=== PATIENT | female | born 1965 | race Caucasian/White ===

== ENCOUNTER → 2018-06-06 14:36 | Outpatient (CLI) | payer SELFPAY ==
[2018-06-06 15:08] LABS: Add Manual Diff / Slide Review NO; Eosinophils Percent Auto 0.5 % (2-4); Hematocrit 38.8 % (36-46); Lymphocytes Percent Auto 18.3 % (25-40); Mean Corpuscular HGB Conc 33.5 % (30-36); Mean Corpuscular Hemoglobin 28.3 PG (26-34); Mean Corpuscular Volume 84.5 fL (80-100); Monocytes Percent Auto 6.1 % (3-14); Neutrophils Absolute Auto 6800 /uL (3000-5900); Neutrophils Percent Auto 74.1 % (50-75); Platelet Count 452 X10^3/uL (150-400); Red Blood Cell Count 4.59 X10^6/uL (4.0-5.2); Red Cell Distribution Width 16.5 % (11.6-14.8); White Blood Cell Count 9.2 X10^3/uL (4.5-11.0)
[2018-06-06 15:21] LABS: Alanine Aminotransferase 46 IU/L (9-52); Albumin 4.8 g/dL (3.5-5.0); Albumin Globulin Ratio 1.3 (1.0-2.8); Alkaline Phosphatase 88 U/L (38-126); Aspartate Aminotransferase 45 IU/L (14-36); BUN Creatinine Ratio 22.9 (6-22); Bilirubin Total 0.9 mg/dL (0.2-1.3); Blood Urea Nitrogen 16 mg/dL (7-17); Calcium 9.9 mg/dL (8.4-10.2); Carbon Dioxide 27 mmol/L (22-32); Chloride 102 mmol/L (98-107); Cholesterol 241 mg/dL (140-199); Estimated Glomerular Filt Rate > 60.0 mL/min (>60); Globulin 3.6 g/dL (1.7-4.1); Glucose 96 mg/dL (70-100); HDL Cholesterol 67 mg/dL (40-60); HEMOLYSIS < 15 (0-50); LDL Cholesterol Calculated 157 mg/dL (<100); Potassium 4.4 mmol/L (3.4-5.1); Sodium 143 mmol/L (137-145); Total Protein 8.4 g/dL (6.3-8.2); Triglycerides 83 mg/dL (35-150)
[2018-06-06 15:57] LABS: TSH w/ Reflex to FT4 1.12 uIU/mL (0.47-4.68)
== END ==
PROVIDERS: Family Provider Family Medicine; PCP Family Medicine; Visit Provider Family Medicine
DX: Z00.00 Encounter for general adult medical examination without abnormal findings (principal)
CPT/HCPCS: 36415; 80053; 80061; 84443; 85025

== ENCOUNTER → 2018-11-07 12:50 | Outpatient (CLI) | payer OTHER, MEDICAID, SELFPAY | PROVIDERS: Family Provider Family Medicine; PCP Family Medicine; Visit Provider Physician Assistant | DX: L02.91 Cutaneous abscess, unspecified (principal) | CPT/HCPCS: 87070; 87077; 87147; 87186; 87205 ==

== ENCOUNTER → 2019-09-06 18:07 | Outpatient (CLI) | payer OTHER, MEDICAID, SELFPAY ==
--- NOTE | 2019-09-06 18:10 | DI.RAD.S_ITS ---
PROCEDURE: XR FOOT RT MIN 3V INDICATIONS: R foot injury TECHNIQUE: 3 views of the foot were acquired. COMPARISON: None. FINDINGS: Bones: No fractures or dislocations. No suspicious bony lesions. Degenerative changes are seen, which are most prominent involving the 1st ray. A plantar calcaneal spur is seen. Incidental note is made of an accessory ossicle, an os peroneum. Soft tissues: No tibiotalar joint effusion. Achilles tendon appears normal. IMPRESSION: No displaced fractures are seen on these plain films. If there is focal tenderness, or other clinical concern for a fracture not seen on these images in this patient with a given history of trauma, please consider a dedicated CT or a short-term followup plain film series (in 1-2 weeks) for further evaluation. Dictated by: Arya Mohan M.D. on 09/06/2019 at 18:24 Approved by: Arya Mohan M.D. on 09/06/2019 at 18:25
== END ==
PROVIDERS: Family Provider Family Medicine; PCP Family Medicine; Referring Provider Physician Assistant; Visit Provider Physician Assistant
DX: S99.921A Unspecified injury of right foot, initial encounter (principal); M77.31 Calcaneal spur, right foot; X58.XXXA Exposure to other specified factors, initial encounter
CPT/HCPCS: 73630

== ENCOUNTER 2019-12-04 14:19 | Emergency (ER) | payer OTHER, MEDICAID, SELFPAY ==
[2019-12-04 14:36] VITALS: BP 185/97; PULSE 96; RESP 15; TEMP 36.8; O2SAT 98; BMI 35.5
--- NOTE | 2019-12-04 14:41 | ED.SKABFB ---
HPI - Skin/Abscess/Foreign Bdy General Chief complaint: Skin/Abscess/Foreign Body Stated complaint: Wants a be tested for MRSA and breast cancer Time Seen by Provider: 12/04/19 14:33 Source: patient Mode of arrival: Ambulatory Limitations: no limitations History of Present Illness HPI narrative: 54-year-old Twila menopausal woman with menorrhagia, presents with abscess on the right inner buttock getting worse over the course of the day. Also noted some redness and superficial change to the left breast today that concerned her and she would like re-evaluated. She denies fevers, cough, chills. She states she has had previous abscesses in the perineal area. She attributes that to heavy bleeding. She currently is menstruating and notes that over the last months to years her menses have gone from a couple of days to a couple of weeks with significant heavy bleeding. She has been evaluated by her primary care physician and apparently hysterectomy, ablation, hormones, IUD have all been found to be not appropriate for her. She states that she has been dealing with this for 10 years. Related Data Home Medications Medication Instructions Recorded Confirmed aspirin [Racheal Advanced] 500 mg PO TID #0 04/10/17 10/14/19 hawthorn tincture PO 11/07/18 10/14/19 Previous Rx's Medication Instructions Recorded chlorthalidone 25 mg tablet 25 mg PO DAILY #90 tab 10/14/19 mupirocin 2 % topical ointment 1 applic TOP BID #60 gram 10/14/19 sulfamethoxazole-trimethoprim 1 tab PO BID #14 tab 12/04/19 Allergies Allergy/AdvReac Type Severity Reaction Status Date / Time latex [LATEX] Allergy Mild BREAKOUT.SKIN Verified 12/04/19 14:36 PEELING lisinopril Allergy Mild cough Verified 12/04/19 14:36 Penicillins [PENICILLINS] Allergy Mild RASH Verified 12/04/19 14:36 PAPER TAPE Allergy Unknown Uncoded 10/14/19 11:21 SILK TAPE Allergy Unknown Uncoded 10/14/19 11:21 night shade vegitables Allergy get sick Uncoded 10/14/19 11:21 Review of Systems Review of Systems Narrative: Pertinent positive and negative findings as per HPI Remainder of review of systems is otherwise unremarkable for Constitutional: Fevers, chills, weakness ENT: No sore throat, neck pain, ear pain CV: Chest pain, palpitations, dyspnea on exertion Respiratory: Cough, wheeze, dyspnea GI: Nausea, vomiting, diarrhea, change in bowel habits, black or bloody stools : Dysuria, hematuria, flank pain MS: Muscle weakness, numbness, joint swelling or warmth Neuro: Syncope, dizziness, tingling Psych: Depression, anxiety, suicidal ideation Endocrine: Fatigue, heat or cold intolerance, very dry skin Heme: Easy bruising or bleeding Allergy: Seasonal rhinorrhea, itchy eyes Patient History Social History marital status: Smoking Status: Former smoker alcohol intake: current substance use type: does not use Smoking Status: Former smoker alcohol intake frequency: holidays/special occasions only Substance Use Type: does not use Exam Narrative Exam Narrative: General: Healthy appearing, in no acute distress. Able to give a complete and coherent history. Well-nourished well-developed HEENT: Moist mucous membranes, normal sclera with reactive pupils, Neck: supple Respiratory: Lungs are clear to auscultation, no wheezing no rales no rhonchi. Full and symmetrical air movement Breasts: Both breasts with normal skin texture and color, normal areola and nipple without discharge. No masses or abnormalities. Cardiac: Regular rate and rhythm no murmurs no bruits Abdomen: Soft nontender good bowel tones, no flank pain Skin: Warm and dry, she has a 2 x 2 cm abscess with approximate least 3 cm of surrounding cellulitis and induration on the left inner buttock cheek. Appears to be Twila follicular. Neurologic: Grossly neurologically intact with no obvious asymmetries or abnormalities Extremities: No trauma, well perfused Psych: Cooperative, appropriate insight and affect Initial Vital Signs Initial Vital Signs: Vital Signs Temperature 98.3 F 12/04/19 14:36 Pulse Rate 96 H 12/04/19 14:36 Respiratory Rate 15 12/04/19 14:36 Blood Pressure 185/97 H 12/04/19 14:36 Pulse Oximetry 98 12/04/19 14:36 Procedures Abscess I/D I&D #1: Site: other (left inner buttock ) Side (if applicable): left Local Anesthetic: lidocaine 1% Amount of anesthesia used (mL): 5 Technique: incised with #11 blade Amount of fluid expressed (mL): 5 Irrigation: No Packing used?: iodoform Course Orders Ordered: ED Orders 12/04/19 15:38 Wound Culture and Gram Stain Stat Discontinued Medications Lidocaine/Sodium Bicarbonate (Buffered Lidocaine 10 Ml Syr) 10 ml INJ NOW ONE Stop: 12/04/19 14:45 Last Admin: 12/04/19 15:06 Dose: 10 ml Documented by: JUDY Vital Signs Vital signs: Vital Signs - 8 hr 12/04/19 14:36 Temperature 98.3 F Pulse Rate 96 H Respiratory Rate 15 Blood Pressure 185/97 H Pulse Oximetry 98 MDM - Skin/Abscess/Foreign Bdy Medical Records Attestation: I reviewed the patient's medical records. MDM Narrative Medical decision making narrative: Developing abscess with cellulitis left inner buttock cheek, not perirectal. Simple I&D with approximately 5 cc of purulence material still some surrounding induration consistent with a cellulitis. She will be placed on Septra for to 7 days. She was concerned about her left breast. On clinical exam I cannot find any superficial abnormalities or deep breast lumps but did encourage her to follow-up with routine mammogram She is safe for home discharge at this time will follow-up with her primary care physician of additional problems return Discharge Plan Departure Patient Disposition: Home Clinical Impression: Abscess Cellulitis Qualifiers: Site of cellulitis: buttock Qualified Code(s): L03.317 - Cellulitis of buttock Instructions: DI for Cellulitis -- Adult, DI for Skin Abscess Activity Restrictions/Additional Instructions: Thank you for coming in today. You do have a small abscess with surrounding infection(cellulitis) to the inner portion of the left buttock. It was drained today and there is a small bit of packing left in place to keep the wound open for a day or 2 to allow continued drainage. Because there was some surrounding cellulitis I am going to suggest 7 days of Bactrim. This has been electronically transmitted to [place]([facility] pharmacy You are concerned about your left breast. On clinical exam I did not find any areas of specific concern. I would encourage you to follow-up with your routine mammogram. Please follow-up with Dr. Mullins. If you feel like the abscess/cellulitis is not improving feel free to return to the emergency department. I hope that you feel better soon Prescriptions: New sulfamethoxazole-trimethoprim 800-160 mg tablet 1 tab PO BID Qty: 14 RF: 0 No Action hawthorn tincture PO RF: 0 mupirocin 2 % ointment 1 applic TOP BID Qty: 60 RF: 1 chlorthalidone 25 mg tablet 25 mg PO DAILY Qty: 90 RF: 1 aspirin [Racheal Advanced] 500 MG tablet 500 mg PO TID Qty: 0 RF: 0 Referrals: Oracio Mullins MD [Primary Care Provider] -
[2019-12-04] MEDS: LIDO 1%/SOD BICARB 8.4% (10ML) 10 ML SYRINGE INJ (15:06)
[2019-12-04 15:58] VITALS: PULSE 94; RESP 16; O2SAT 99
== END 2019-12-04 15:59 | disposition home or self-care (01) ==
PROVIDERS: Emergency Provider Emergency Medicine; Family Provider Family Medicine; PCP Family Medicine
DX: L02.31 Cutaneous abscess of buttock (principal); L03.317 Cellulitis of buttock
CPT/HCPCS: 10060; 87070; 87075; 87077; 87186; 87205; 99283

== ENCOUNTER 2020-10-06 10:04 | Emergency (ER) | payer OTHER, MEDICAID, SELFPAY ==
[2020-10-06 10:08] VITALS: BP 231/92; PULSE 69; RESP 16; TEMP 36.8; O2SAT 99; BMI 34.9
[2020-10-06 10:11] VITALS: PULSE 72; O2SAT 99
--- NOTE | 2020-10-06 10:21 | DI.RAD.S_ITS ---
PROCEDURE: XR CHEST 1V INDICATIONS: HTN, weakness TECHNIQUE: One view of the chest was acquired. COMPARISON: None. FINDINGS: Surgical changes and devices: None. Lungs and pleura: Lungs are clear. No pleural effusions or pneumothorax. Mediastinum: Mediastinal contours appear normal. Heart size is normal. Bones and chest wall: No suspicious bony lesions. Overlying soft tissues appear unremarkable. IMPRESSION: No acute process. Dictated by: Anna Page M.D. on 10/06/2020 at 10:55 Approved by: Anna Page M.D. on 10/06/2020 at 10:55
--- NOTE | 2020-10-06 10:22 | ED.GENADULT ---
HPI - General Adult General Chief complaint: Hypertension Stated complaint: High Blood pressure, Heavy periods Time Seen by Provider: 10/06/20 10:05 Source: patient Mode of arrival: Wheelchair Limitations: no limitations History of Present Illness HPI narrative: 55F former smoker with history of chronic full body pain and hypertension presents with multiple complaints. She was seen at the walk-in clinic and had mentioned to them that she has had increasingly heavy menstrual cycles for the past few months. She states that her cycles are now upwards of 2 weeks per episode and she usually has a few days of very heavy bleeding. She is no longer bleeding significantly but this is of concern to her. She is not dizzy nor weak or lightheaded. She states that she has been diagnosed with hypertension for quite some time but has had difficulty finding medications that she can tolerate. She has not taken her hydrochlorothiazide in many months and initial blood pressure is well over 200. She complains of a generalized squeezing-type headache without obvious provocation or palliation. She has no neck pain, no confusion, no blurred vision, trouble speech or focal neurologic problems. She has had no fever chills and has any chest pain or shortness of breath. Onset (ago): month(s) Location: head Radiation: non-radiation Severity: moderate Quality: aching Exacerbating factors: none Treatments prior to arrival: none Related Data Home Medications Medication Instructions Recorded Confirmed aspirin [Racheal Advanced] 500 mg PO TID #0 04/10/17 08/07/20 hawthorn tincture PO 11/07/18 08/07/20 Previous Rx's Medication Instructions Recorded sulfamethoxazole 800 1 tab PO BID #14 tab 08/01/20 mg-trimethoprim 160 mg tablet hydrochlorothiazide 25 mg tablet 25 mg PO DAILY #90 tab 08/07/20 mupirocin 2 % topical ointment 1 applic TOP BID #45 g 08/07/20 Allergies Allergy/AdvReac Type Severity Reaction Status Date / Time latex [LATEX] Allergy Mild BREAKOUT.SKIN Verified 10/06/20 10:20 PEELING lisinopril Allergy Mild cough Verified 10/06/20 10:20 Penicillins [PENICILLINS] Allergy Mild RASH Verified 10/06/20 10:20 PAPER TAPE Allergy Unknown Uncoded 10/06/20 10:20 SILK TAPE Allergy Unknown Uncoded 10/06/20 10:20 night shade vegitables Allergy get sick Uncoded 10/06/20 10:20 Review of Systems Constitutional Constitutional: Denies chills, Denies fatigue, Denies fever(s), Denies frequent falls, Reports headache(s), Denies lethargy and Denies weakness Eyes Eyes: Denies change in vision, Denies eye discharge, Denies irritation and Denies loss of vision ENT Ears, Nose, Mouth, and Throat: Denies change in voice, Denies dizziness, Reports headache(s), Denies neck pain, Denies sore throat and Denies throat swelling Cardiovascular Cardiovascular: Denies chest pain, Denies irregular heart rhythm, Denies lightheadedness, Denies palpitations, Denies dyspnea, Denies dyspnea on exertion and Denies orthopnea Respiratory Respiratory: Denies cough, Denies dyspnea, Denies dyspnea on exertion and Denies wheezing Gastrointestinal Gastrointestinal: Denies abdominal pain, Denies change in bowel habits, Denies diarrhea, Denies nausea and Denies vomiting Genitourinary Genitourinary: Reports menorrhagia Musculoskeletal Musculoskeletal: Denies neck pain and Denies numbness Integumentary/Breasts Skin/Breast: Denies pruritus, Denies erythema, Denies rash and Denies wounds Neurologic Neurologic: Denies behavioral changes, Denies confusion, Denies dizziness, Denies frequent falls, Reports headache(s), Denies loss of vision, Denies numbness and Denies weakness Psychiatric Psychiatric: Denies anxiety, Denies behavioral changes, Denies confusion, Denies depression, Denies homicidal ideation and Denies suicidal ideation Endocrine Endocrine: Denies fatigue, Denies flushing and Denies palpitations Hematologic/Lymphatic Hematologic/Lymphatic: Denies easy bruising Allergic/Immunologic Allergic/Immunologic: Denies urticaria, Denies throat swelling and Denies wheezing Patient History Medical History Anxiety Cutaneous abscess of buttock Fatigue HTN (hypertension) Twila-menopausal Surgical History History of nephrectomy Status post dilation and curettage Status post loop electrosurgical excision procedure (LEEP) of cervix Family History Father No problems noted. Mother No problems noted. Social History marital status: Smoking Status: Former smoker alcohol intake: current substance use type: does not use Smoking Status: Former smoker alcohol intake frequency: holidays/special occasions only Substance Use Type: does not use Exam Narrative Exam Narrative: GENERAL: [55] year old patient appears stated age. Well-nourished, well-developed patient, in mild distress. Anxious HEAD: Atraumatic. Normocephalic. EYES: Pupils equal round and reactive. Extraocular motions intact. No scleral icterus. No injection or drainage. ENT: Nose without bleeding, purulent drainage. Throat without erythema, tonsillar hypertrophy or exudate. Airway patent. NECK: Trachea midline. Non tender CARDIOVASCULAR: Regular rate and rhythm without murmurs, gallops, or rubs. RESPIRATORY: Clear to auscultation. Breath sounds equal bilaterally. No wheezes, rales, or rhonchi. GASTROINTESTINAL: Abdomen soft, non-tender, nondistended. EXTREMITIES: No edema or joint tenderness. BACK: Nontender without deformity or crepitance. No flank tenderness. NEURO: AOx3. SKIN: No rash or erythema of visible areas Initial Vital Signs Initial Vital Signs: Vital Signs Temperature 98.3 F 10/06/20 10:08 Pulse Rate 69 10/06/20 10:08 Respiratory Rate 16 10/06/20 10:08 Blood Pressure 231/92 H 10/06/20 10:08 Pulse Oximetry 99 10/06/20 10:08 Course Course Course Narrative: Patient's blood pressure improved tremendously over the course of her visit. Along with her improved blood pressure her headache has resolved. She has no signs of hypertensive emergency and remainder of labs and exam is very reassuring. She has minimal ongoing bleeding and ultrasound shows no significant findings. I have discussed this with her primary care provider and he will see her in the office later this week to discuss ongoing evaluation and treatment. Orders Ordered: ED Orders 10/06/20 10:16 Complete Blood Count AUTO DIFF Stat Comprehensive Metabolic Panel Stat Magnesium Stat NT-proBNP (BNP-Adult 18+) Stat Prothrombin Time INR Stat Troponin & CK Cardiac Panel Stat 10/06/20 10:21 XR chest 1V Stat EKG-12 Lead Stat 10/06/20 11:07 US pelvic complete Stat Vital Signs Vital signs: Vital Signs - 8 hr 10/06/20 11:00 10/06/20 12:49 Pulse Rate 70 71 Respiratory Rate 15 18 Blood Pressure 189/86 H 177/89 H Pulse Oximetry 99 99 Medical Decision Making Lab Data Result diagrams: 10/06/20 10:16 10/06/20 10:16 Labs: Lab Results 10/06/20 10/06/20 10/06/20 Range/Units 10:16 10:16 10:16 WBC 8.4 (4.5-11.0) X10^3/uL RBC 4.28 (4.0-5.2) X10^6/uL Hgb 11.6 L (12.0-16.0) g/dL Hct 35.6 L (36-46) % MCV 83.2 (80-100) fL MCH 27.0 (26-34) PG MCHC 32.5 (30-36) % RDW 16.6 H (11.6-14.8) % Plt Count 439 H (150-400) X10^3/uL Neut % (Auto) 71.2 (50-75) % Lymph % (Auto) 18.9 L (25-40) % [place] % (Auto) 7.6 (3-14) % Eos % (Auto) 0.9 L (2-4) % Baso % (Auto) 1.4 (0-2) % Neut # (Auto) 6000 (7284-2963) /uL Lymph # (Auto) 1600 (4956-2162) /uL [place] # (Auto) 600 (0-900) /uL Eos # (Auto) 100 (0-450) /uL Baso # (Auto) 100 (0-100) /uL PT 12.7 (10.1-12.7) SECONDS INR 1.1 (0.9-1.3) Sodium 136 L (137-145) mmol/L Potassium 3.9 (3.4-5.1) mmol/L Chloride 105 (98-107) mmol/L Carbon Dioxide 29 (22-32) mmol/L BUN 10 (7-17) mg/dL Creatinine 0.68 (0.52-1.04) mg/dL Estimated GFR > 60.0 (>60) mL/min BUN/Creatinine Ratio 14.7 (6-22) Glucose 94 (70-100) mg/dL Calcium 9.4 (8.4-10.2) mg/dL Magnesium (1.6-2.3) mg/dL Total Bilirubin 0.6 (0.2-1.3) mg/dL AST 29 (14-36) IU/L ALT 21 (<35) IU/L Alkaline Phosphatase 68 (38-126) U/L Total Creatine Kinase (30-135) U/L CK-MB (CK-2) CK-MB (CK-2) Rel Index Troponin I (0.01-0.034) ng/mL NT-Pro-B Natriuret Pep (<125) pg/mL Total Protein 7.3 (6.3-8.2) g/dL Albumin 4.3 (3.5-5.0) g/dL Globulin 3.0 (1.7-4.1) g/dL Albumin/Globulin Ratio 1.4 (1.0-2.8) 10/06/20 Range/Units 10:16 WBC (4.5-11.0) X10^3/uL RBC (4.0-5.2) X10^6/uL Hgb (12.0-16.0) g/dL Hct (36-46) % MCV (80-100) fL MCH (26-34) PG MCHC (30-36) % RDW (11.6-14.8) % Plt Count (150-400) X10^3/uL Neut % (Auto) (50-75) % Lymph % (Auto) (25-40) % [place] % (Auto) (3-14) % Eos % (Auto) (2-4) % Baso % (Auto) (0-2) % Neut # (Auto) (1666-0853) /uL Lymph # (Auto) (2019-8494) /uL [place] # (Auto) (0-900) /uL Eos # (Auto) (0-450) /uL Baso # (Auto) (0-100) /uL PT (10.1-12.7) SECONDS INR (0.9-1.3) Sodium (137-145) mmol/L Potassium (3.4-5.1) mmol/L Chloride (98-107) mmol/L Carbon Dioxide (22-32) mmol/L BUN (7-17) mg/dL Creatinine (0.52-1.04) mg/dL Estimated GFR (>60) mL/min BUN/Creatinine Ratio (6-22) Glucose (70-100) mg/dL Calcium (8.4-10.2) mg/dL Magnesium 2.1 (1.6-2.3) mg/dL Total Bilirubin (0.2-1.3) mg/dL AST (14-36) IU/L ALT (<35) IU/L Alkaline Phosphatase (38-126) U/L Total Creatine Kinase 74 (30-135) U/L CK-MB (CK-2) TNP CK-MB (CK-2) Rel Index TNP Troponin I < 0.012 (0.01-0.034) ng/mL NT-Pro-B Natriuret Pep 154 H (<125) pg/mL Total Protein (6.3-8.2) g/dL Albumin (3.5-5.0) g/dL Globulin (1.7-4.1) g/dL Albumin/Globulin Ratio (1.0-2.8) Imaging Data US - CHIEF TECHNICAL OFFICER: Radiologist's Impression: [address] [id number] ReportSigned Patient: Daksha Verduzco LMR#: [id number]: 1965Acct:[id number]/Sex: 55 / FDate of Service: 10/06/20Loc: EDAccession Number: [id number] Procedure: US pelvic complete Ordering Provider: Quentin Licea D.O. PROCEDURE: US PELVIC COMPLETE INDICATIONS: HEAVY VAGINAL BLEEDING TECHNIQUE: Real-time scanning was performed of the pelvic organs, with image documentation. Additional endovaginal scanning was necessary due to incomplete visualization of the adnexal and endometrial structures by transabdominal scanning. COMPARISON: [facility], US, PELVIC COMPLETE, 02/08/2017, 10:37. FINDINGS: Uterus: Uterus is anteverted and normal in size at 5.3 x 5.8 x 9.3 cm. The endometrium measures 3.6 mm in combined thickness. Ovaries: There is a right ovarian cyst that measures up to 2.2 cm, mildly enlarging the right ovary which overall measures 4.2 x 2.1 x 2.2 cm. The left ovary could not be located likely due to overlying bowel gas. Other: No pathologic free abdominal or pelvic fluid. IMPRESSION: Nonvisualization of the left ovary due to bowel gas, simple cyst mildly enlarges the right ovary and the cyst measures only 2.2 cm with the largest dimension of the right ovary 4.2 cm. Source of reported bleeding is not seen. The patient reports recent resolution of bleeding. Dictated by: Bill Gee M.D. on 10/06/2020 at 11:18 Approved by: Bill Gee M.D. on 10/06/2020 at 11:20 Discharge Plan Departure Patient Disposition: Home Clinical Impression: Abnormal vaginal bleeding Hypertension Qualifiers: Hypertension type: essential hypertension Qualified Code(s): I10 - Essential (primary) hypertension Instructions: DI for High Blood Pressure, DI for Vaginal Bleeding Activity Restrictions/Additional Instructions: *You have been diagnosed with [abnormal vaginal bleeding, hypertension] *What to do: *Take medications as directed *Follow up with your primary care provider in 2-3 days, call for an appointment. Let them know you were seen in the Emergency Department and that we ask that you be seen in follow up *Return to ER if you should have any new, worsening or concerning symptoms Prescriptions: No Action hawthorn tincture PO RF: 0 sulfamethoxazole-trimethoprim 800-160 mg tablet 1 tab PO BID Qty: 14 RF: 0 hydrochlorothiazide 25 mg tablet 25 mg PO DAILY Qty: 90 RF: 1 mupirocin 2 % ointment 1 applic TOP BID Qty: 45 RF: 1 aspirin [Racheal Advanced] 500 MG tablet 500 mg PO TID Qty: 0 RF: 0 Referrals: Oracio Mullins MD [Primary Care Provider] -
[2020-10-06 10:30] VITALS: PULSE 64; O2SAT 99
[2020-10-06 10:30] LABS: Add Manual Diff / Slide Review NO; Basophils Absolute Auto 100 /uL (0-100); Basophils Percent Auto 1.4 % (0-2); Eosinophils Absolute Auto 100 /uL (0-450); Eosinophils Percent Auto 0.9 % (2-4); Hematocrit 35.6 % (36-46); Hemoglobin 11.6 g/dL (12.0-16.0); Lymphocytes Absolute Auto 1600 /uL (1100-4500); Lymphocytes Percent Auto 18.9 % (25-40); Mean Corpuscular HGB Conc 32.5 % (30-36); Mean Corpuscular Volume 83.2 fL (80-100); Monocytes Absolute Auto 600 /uL (0-900); Monocytes Percent Auto 7.6 % (3-14); Neutrophils Absolute Auto 6000 /uL (1500-7000); Neutrophils Percent Auto 71.2 % (50-75); Platelet Count 439 X10^3/uL (150-400); Red Blood Cell Count 4.28 X10^6/uL (4.0-5.2); Red Cell Distribution Width 16.6 % (11.6-14.8); White Blood Cell Count 8.4 X10^3/uL (4.5-11.0)
[2020-10-06 10:31] VITALS: BP 182/84; PULSE 65; RESP 12; O2SAT 99
[2020-10-06 10:35] LABS: INR 1.1 (0.9-1.3); Prothrombin Time 12.7 SECONDS (10.1-12.7)
[2020-10-06 10:37] LABS: Creatine Kinase 74 U/L (30-135); Magnesium 2.1 mg/dL (1.6-2.3)
[2020-10-06 10:38] LABS: Alanine Aminotransferase 21 IU/L (<35); Albumin 4.3 g/dL (3.5-5.0); Albumin Globulin Ratio 1.4 (1.0-2.8); Alkaline Phosphatase 68 U/L (38-126); Aspartate Aminotransferase 29 IU/L (14-36); BUN Creatinine Ratio 14.7 (6-22); Bilirubin Total 0.6 mg/dL (0.2-1.3); Blood Urea Nitrogen 10 mg/dL (7-17); Calcium 9.4 mg/dL (8.4-10.2); Carbon Dioxide 29 mmol/L (22-32); Chloride 105 mmol/L (98-107); Estimated Glomerular Filt Rate > 60.0 mL/min (>60); Glucose 94 mg/dL (70-100); HEMOLYSIS < 15 (0-50); Potassium 3.9 mmol/L (3.4-5.1); Sodium 136 mmol/L (137-145); Total Protein 7.3 g/dL (6.3-8.2)
[2020-10-06 10:50] LABS: NT-proBNP (BNP-Adult 18+) 154 pg/mL (<125); Troponin I < 0.012 ng/mL (0.01-0.034)
[2020-10-06 11:00] VITALS: BP 189/86; PULSE 70; RESP 15; O2SAT 99
--- NOTE | 2020-10-06 11:07 | DI.US.S_ITS ---
PROCEDURE: US PELVIC COMPLETE INDICATIONS: HEAVY VAGINAL BLEEDING TECHNIQUE: Real-time scanning was performed of the pelvic organs, with image documentation. Additional endovaginal scanning was necessary due to incomplete visualization of the adnexal and endometrial structures by transabdominal scanning. COMPARISON: [facility], US, PELVIC COMPLETE, 02/08/2017, 10:37. FINDINGS: Uterus: Uterus is anteverted and normal in size at 5.3 x 5.8 x 9.3 cm. The endometrium measures 3.6 mm in combined thickness. Ovaries: There is a right ovarian cyst that measures up to 2.2 cm, mildly enlarging the right ovary which overall measures 4.2 x 2.1 x 2.2 cm. The left ovary could not be located likely due to overlying bowel gas. Other: No pathologic free abdominal or pelvic fluid. IMPRESSION: Nonvisualization of the left ovary due to bowel gas, simple cyst mildly enlarges the right ovary and the cyst measures only 2.2 cm with the largest dimension of the right ovary 4.2 cm. Source of reported bleeding is not seen. The patient reports recent resolution of bleeding. Dictated by: Bill Gee M.D. on 10/06/2020 at 11:18 Approved by: Bill Gee M.D. on 10/06/2020 at 11:20
[2020-10-06 12:49] VITALS: BP 177/89; PULSE 71; RESP 18; O2SAT 99
== END 2020-10-06 12:50 | disposition home or self-care (01) ==
PROVIDERS: Emergency Provider Emergency Medicine; Family Provider Family Medicine; PCP Family Medicine; Referring Provider Emergency Medicine
DX: N93.9 Abnormal uterine and vaginal bleeding, unspecified (principal); I10 Essential (primary) hypertension; R51.9 Headache, unspecified; N92.0 Excessive and frequent menstruation with regular cycle
CPT/HCPCS: 36415; 71045; 76830; 76856; 80053; 82550; 83735; 83880; 84484; 85025; 85610; 93005; 99281; 99284

== ENCOUNTER → 2021-03-09 13:55 | Outpatient (CLI) | payer OTHER, MEDICAID, SELFPAY ==
--- NOTE | 2021-03-09 13:58 | DI.US.S_ITS ---
PROCEDURE: US PELVIC COMPLETE INDICATIONS: IUD Check/Heavy bleeding TECHNIQUE: Real-time scanning was performed of the pelvic organs, with image documentation. Additional endovaginal scanning was necessary due to incomplete visualization of the adnexal and endometrial structures by transabdominal scanning. COMPARISON: [facility], US, US PELVIC COMPLETE, 12/17/2020, 15:29. FINDINGS: Uterus: The uterus measures 10.0 x 3.7 x 5.3 cm. Endometrial thickness is 5.9 mm. An IUD is visualized and appears to be well position by ultrasound. No uterine fibroids. Ovaries: The ovaries are not visualized. Other: No pathologic free abdominal or pelvic fluid. IMPRESSION: The IUD is well positioned. Dictated by: Padilla Vargas M.D. on 03/09/2021 at 16:29 Approved by: Padilla Vargas M.D. on 03/09/2021 at 16:31
== END ==
PROVIDERS: Family Provider Family Medicine; PCP Family Medicine; Referring Provider Obstetrics & Gynecology; Visit Provider Obstetrics & Gynecology
DX: N92.1 Excessive and frequent menstruation with irregular cycle (principal); Z30.431 Encounter for routine checking of intrauterine contraceptive device
CPT/HCPCS: 76830; 76856

== ENCOUNTER → 2021-03-11 10:37 | Outpatient (CLI) | payer OTHER, MEDICAID, SELFPAY ==
[2021-03-11 12:16] LABS: Free T4, Direct Thyroxine 0.98 ng/dL (0.78-2.19)
== END ==
PROVIDERS: Family Provider Family Medicine; PCP Family Medicine; Referring Provider Obstetrics & Gynecology; Visit Provider Obstetrics & Gynecology
DX: N92.1 Excessive and frequent menstruation with irregular cycle (principal)
CPT/HCPCS: 36415; 84439; 84443

== ENCOUNTER → 2021-06-14 16:29 | Outpatient (CLI) | payer OTHER, MEDICAID, SELFPAY ==
[2021-06-14 17:30] LABS: COVID19 -Nasal RAPID Negative (Negative)
== END ==
PROVIDERS: Family Provider Family Medicine; PCP Family Medicine; Referring Provider Obstetrics & Gynecology; Visit Provider Obstetrics & Gynecology
DX: Z01.812 Encounter for preprocedural laboratory examination (principal); Z20.822 Contact with and (suspected) exposure to COVID-19
CPT/HCPCS: 87635; C9803

== ENCOUNTER 2021-06-15 07:57 | Day surgery (SDC) | payer OTHER, MEDICAID, SELFPAY ==
[2021-06-09 08:53] VITALS: BMI 35.9
[2021-06-15] VITALS (13 sets, daily range): BP systolic 122–151; BP diastolic 43–91; PULSE 74–100; RESP 12–23; TEMP 36.5–37.4; O2SAT 92–100; BMI 35.9
--- NOTE | 2021-06-15 | PATH_ITS ---
[facility] Accession Number: [id number] . 01 Material submitted: . uterus - UTERUS AND BILATERAL FALLOPIAN TUBES . 02 Diagnosis: Uterus and Bilateral Fallopian Tubes, Supracervical Hysterectomy and Bilateral Salpingectomy (Weight 92 grams): Disordered proliferative endometrium with pseudo-decidualized stromal change; negative for glandular hyperplasia, cytologic atypia or malignancy. Myometrium with no significant histomorphologic abnormality. Uterine serosa with no significant histomorphologic abnormality. Fallopian tubes x2 with benign paratubal cysts (less than 1 mm); negative for atypia or malignancy. No intrauterine contraceptive device identified at gross examination. [facility] 06/17/2021 1414 Local . 02 Electronically signed: . Tana Wheeler MD, Pathologist NPI- [id number] . 01 Gross description: . The specimen is received in formalin, labeled uterus and bilateral fallopian tubes and consists of a 92-gram, diffusely disrupted, supracervically resected uterus measuring 7.5 x 5.5 x 4.5 cm. The serosa is sanders-pink and smooth. Sectioning reveals an approximate 2.5 x 2.0 cm endometrial cavity with a sanders-pink hemorrhagic endometrium measuring 0.1 cm in thickness. The myometrium is sanders-pink and trabeculated, measuring approximately 3.0 cm in thickness. Also received are two detached fallopian tubes measuring 4.0 cm in length by 1.0 cm in diameter and 5.5 cm in length by 0.9 cm in diameter. The serosa is pink-purple with fibrinous adhesions. Sectioning reveals a sanders mucosa and a stellate lumen measuring 0.3 cm in diameter. Toe Closing Machine Tender sections are submitted. . A1-A4: Toe Closing Machine Tender uterus. A5-A6: Fallopian tube, health and safety representative central cross sections and bisected fimbria. (EA:[id number]) /MRV 06/16/2021 1152 Local . 02 Pathologist provided ICD-10: Z30.432, N93.9 . 02 CPT . 790718 Performed at: 01 [facility] [address] [id number] MD Matty Quinn MD Phone: [phone] Performed at: 02 [place] [id number] [place] [id number] MD Serina Miranda MD Phone: [phone]
--- NOTE | 2021-06-15 07:46 | PM.HP.1 ---
History of Present Illness History of Present Illness Date Patient Seen: 06/15/21 Time Patient Seen: 09:32 Chief complaint: OPB Narrative: Patient is a 56-year-old 3 para 2011 with abnormal uterine bleeding and a Mirena IUD in place, who presents for a laparoscopic supracervical hysterectomy, bilateral salpingectomy, and removal of Mirena IUD. Patient History Medical History (Updated 04/27/21 @ 06:42 by Venus Leon MD) Abdominal pain Abscess Abscess Acute sinusitis Anxiety Cutaneous abscess of buttock Hematuria HTN (hypertension) Leg cramps Neck pain (03/30/15) Otalgia of right ear Pain in metatarsus of right foot Twila-menopausal Surgical History History of nephrectomy Status post dilation and curettage Status post loop electrosurgical excision procedure (LEEP) of cervix Family & Social History Family History Father No problems noted. Mother No problems noted. Social History: household members spouse,children Tobacco & Substance use: Smoking Status Former smoker alcohol intake current alcohol intake frequency holiday/special occasion Substance Use Type does not use Meds Home Medications and Allergies Home Medications Medication Instructions Recorded Confirmed Type amlodipine 5 mg tablet 5 mg PO DAILY #60 tab 10/08/20 06/15/21 Rx chlorthalidone 25 mg tablet 25 mg PO DAILY #90 tab 02/17/21 06/15/21 Rx Allergies Allergy/AdvReac Type Severity Reaction Status Date / Time latex [LATEX] Allergy Mild BREAKOUT.SKIN Verified 06/15/21 08:15 PEELING lisinopril Allergy Mild cough Verified 06/15/21 08:15 Penicillins [PENICILLINS] Allergy Mild RASH Verified 06/15/21 08:15 PAPER TAPE Allergy Unknown Uncoded 06/02/21 15:36 SILK TAPE Allergy Unknown Uncoded 06/02/21 15:36 night shade vegitables Allergy get sick Uncoded 06/02/21 15:36 Exam Narrative Exam Narrative: Generally: Patient lying in bed, no acute distress HEENT: No thyromegaly, no anterior cervical or supraclavicular lymphadenopathy. Lungs:Clear to auscultation bilaterally, no wheezes. Cardiovascular: Regular rate and rhythm, no murmurs, rubs, or gallops]. Abdomen:[Well-healed left flank scar. No hepatosplenomegaly. No masses palpable] External genitalia:[Gabby] Vagina:[Gabby] Cervix: Status post LEEP. Mirena IUD strings visible. Bimanual exam: 8 Week size anteverted uterus. Mobile. No adnexal masses or tenderness Assessment & Plan Assessment & Plan narrative: Assessment: 56-year-old 3 para 2 with abnormal uterine bleeding and a Mirena IUD in place Plan: Laparoscopic supracervical hysterectomy, bilateral salpingectomy, and removal of Mirena IUD The risks, benefits, and alternatives to the procedure were explained to the patient. The risks including bleeding, infection, injury to the bowel, bladder, or ureters. She understands these risks and agrees to proceed. A full par Q was held and consent form was signed. COVID-19 COVID-19 status: Negative Result date/Date tested (Pos, Neg/Pending): 06/14/21 Time Spent With Patient Time with patient: less than 30 minutes Critical Care time: I spent a total of [] minutes of critical care time on this patient's care today; this time is exclusive of procedural time.
--- NOTE | 2021-06-15 07:49 | PM.PREOP ---
Pre-operative Note COVID-19 COVID-19 status: Negative Result date/Date tested (Pos, Neg/Pending): 06/14/21 Interval Note History & Physical reviewed/Exam performed by Physician: Yes Changes to H&P: No H&P completed within 30 days and has changed as indicated here:: 06/02/21
[2021-06-15] MEDS: ACETAMINOPHEN 325 MG TABLET 975 MG PO (08:38)
[2021-06-15] MEDS: LACTATED RINGERS 1,000 ML 42 ML IV (08:39)
[2021-06-15] MEDS: SCOPOLAMINE 1 PATCH TOP (08:39)
[2021-06-15] MEDS: CEFAZOLIN 1 GM VIAL 2 GM IV (10:29)
[2021-06-15] MEDS: ROPIVACAINE 0.2% PF 2 MG/ML 10ML AMP 20 ML INJ (10:38)
[2021-06-15] MEDS: BUPIVACAINE 0.5% (PF) 30 ML, EPINEPHrine 0.15 MG INJ (10:38)
--- NOTE | 2021-06-15 10:42 | SUR.OPER ---
Lithotomy on padded OR bed. Ismay Pad Positioner under torso. Head on pillow, arms padded and tucked at sides. Legs secured in padded yellow fins stirrups.
--- NOTE | 2021-06-15 11:38 | PM.GYNOP.1 ---
Operative Date/Time/Diagnoses Date of procedure: 06/15/21 Time of procedure: 11:38 Pre-op diagnosis: Abnormal uterine bleeding Mirena IUD in place Post-op diagnosis: same Procedure & Clinicians Procedure: Procedures Operation Date: 06/15/21 09:45 Actual Procedure Side Surgeon p Laparoscopic Supracervical Hysterectomy w/Bilateral Salpingectomy, lysis of omental adhesions, removal right ovarian cyst, removal of IUD Venus Leon MD Indications: Abnormal uterine bleeding Mirena IUD in place Surgeon: Venus Leon Window Shade Cutter And Mounter: Carmen George Anesthesia Type: General and Local Operative Notes Findings: 10 week size, wide uterus Normal tubes Normal left ovary Right ovary with 2 cm simple cyst Omental to anterior abdominal wall adhesions Closure Type: primary Specimen(s): left tube, right tube and uterus Applied: catheter (Removed at the end of the case) Estimated blood loss (mL): 50 Blood products transfused: none Procedure in detail: The patient was taken to the operating room where she was placed in the dorsal supine position. After adequate general endotracheal anesthesia was achieved, she was placed in the dorsal lithotomy position, and prepped and draped in the usual sterile fashion. A timeout was performed. A bivalve speculum was placed into the vagina and the anterior lip of the cervix grasped with a single-tooth tenaculum. The cervical os was sequentially dilated until the ZUMI uterine manipulator could pass easily into the endometrial cavity. The single-tooth tenaculum was removed from the anterior lip of the cervix, and the bivalve speculum was removed from the vagina. Attention was then turned to the abdomen where 6 mL of half percent Marcaine with epinephrine were injected in the umbilical fold. A 5 mm incision was made. The Verhees needle was placed into the peritoneal cavity, and its placement confirmed by aspiration and drop test. The Verhees needle was removed. A 5 mm trocar was placed without difficulty. 2 other incisions were made 4 cm lateral to the midline at the level of the umbilicus after 6 cc of 0.5% Marcaine with epinephrine were injected. These were 5 mm incisions. Two 5 mm trochars were placed under direct visualization. With the camera in the right lateral trocar, using the PlasmaKinetic of the omental to anterior abdominal wall adhesions to the right of the umbilicus, were taken down with cautery and cut. Hemostasis was achieved. Right tube was grasped with an atraumatic grasper. Using the plasma kinetic with settings of 40 W the mesosalpinx was cauterized and cut all the way down to the cornua of the uterus. The cornua of the uterus was then grasped with an atraumatic grasper. The utero-ovarian ligaments were cauterized and cut. The round ligament and broad ligament were cauterized and cut with plasma kinetic. Hemostasis was achieved. The bladder flap was created using the plasma kinetic with cautery and cut mcc across. The uterine arteries on the right side were extensively cauterized with plasma kinetic. All of this was repeated on the left side. The remainder of the bladder flap was created using the plasma kinetic, and the bladder taken down off the lower uterine segment and cervix. Using the Linaloop, the cervix was amputated from the uterus 2 cm above the uterosacral ligaments, after the ZUMI uterine manipulator was removed from the uterus. There was a small amount of bleeding noted from the posterior edge of the cervix, and this was cauterized for hemostasis. A sponge stick was placed into the vagina. 6 mL of half percent Marcaine with epinephrine were injected above the pubic symphysis. A 12 mm trocar was placed. An Endobag was placed through the suprapubic trocar and the uterus and tubes were placed into the Endobag. The trocar was removed. The edges of the endobag were brought up through the skin. The Xander placed into the endobag. The uterus was hand morcellated in approximately 10 pieces. The Endobag was removed from the peritoneal cavity with the tubes. The pelvis was copiously irrigated with warm normal saline. No bleeding was noted. The instruments wereremoved from the abdomen. The CO2 was allowed to escape. The suprapubic incision was closed on the fascia with 0 Vicryl. The subcutaneous layer was closed with 2 simple interrupted sutures with 3-0 Vicryl. All of the incisions were closed with 4-0 Biosyn in a subcuticular fashion. Steri-Strips and Allevyn dressings were placed. The moistened sponge stick was removed from the vagina. Sponge, lap, and instrument counts were correct x-2. The patient tolerated the procedure well, was taken to PACU in stable condition. Complications: none Post-operative Condition: stable Disposition: PACU Plan for aftercare: To acute care after recovery
[2021-06-15] MEDS: ONDANSETRON 4 MG/2 ML INJ IV (11:47)
[2021-06-15] MEDS: fentaNYL 100 MCG/2 ML INJ IV ×2 (11:58→12:04)
[2021-06-15] MEDS: METOCLOPRAMIDE 10 MG/2 ML INJ IV (13:49)
[2021-06-15] MEDS: LACTATED RINGERS 1,000 ML 100 ML IV (13:55)
--- NOTE | 2021-06-15 14:32 | PC.NURSE ---
1315 Patient had a mild siezure lasting at 12 minutes,daughter in room with patient,gave her reglan for dry heaves and tylenol for pain scale of r/10, up to bathroom, no void at this time.Drinking water.
--- NOTE | 2021-06-15 14:39 | PC.NURSE ---
1225 Patient transferred from PACU, s/p Laparoscopic supracervical hysrectomy w/removal of both tubes and removeal of IUD,alert and oriented x3, O2 at 0.5 liters, no SOB noted,SCD's in place; comfortable,4x bandages in place the top one by unbilicus with small linear blood at bottom of bandage.
[2021-06-15] MEDS: TRAMADOL 50 MG TABLET PO (14:48)
[2021-06-15 16:16] LABS: Estimated Glomerular Filt Rate > 60.0 mL/min (>60)
[2021-06-15] MEDS: ACETAMINOPHEN 325 MG TABLET 650 MG PO (19:42)
[2021-06-15] MEDS: KETOROLAC 30 MG/ML VIAL IV (19:43)
[2021-06-15] MEDS: DOCUSATE 100 MG CAPSULE 200 MG PO (21:16)
--- NOTE | 2021-06-15 23:04 | PC.NURSE ---
5: Pt resting in bed, awakes to verbal stimuli. Plan of care discussed for night including pain management med schedule. Pt ambulated to bathroom, elliott well, rishi pad changed with minor assistance from RN (no drainage noted). Four bandaid dressings to abdomen clean/dry/intact except for central bandaid which has a small amount of old blood around edges. Pt oriented to call lights in room and bathroom. Linens changed, warm blankets provided, pt declines gown change. Denies any questions or concerns at this time. Call light within reach.
[2021-06-16 02:00] VITALS: BP 108/58; PULSE 70; RESP 15; TEMP 37.2; O2SAT 96
[2021-06-16 02:01] VITALS: TEMP 37.2
[2021-06-16] MEDS: KETOROLAC 30 MG/ML VIAL IV ×2 (02:01→07:55)
[2021-06-16] MEDS: ACETAMINOPHEN 325 MG TABLET 650 MG PO ×2 (02:02→07:54)
--- NOTE | 2021-06-16 06:40 | PC.NURSE ---
0545: at bedside discussing discharge instructions with pt.
[2021-06-16 07:18] LABS: Add Manual Diff / Slide Review NO; Basophils Absolute Auto 0 /uL (0-100); Basophils Percent Auto 0.2 % (0-2); Eosinophils Absolute Auto 0 /uL (0-450); Hematocrit 36.5 % (36-46); Hemoglobin 12.2 g/dL (12.0-16.0); Lymphocytes Absolute Auto 1300 /uL (1100-4500); Lymphocytes Percent Auto 6.4 % (25-40); Mean Corpuscular HGB Conc 33.5 % (30-36); Mean Corpuscular Hemoglobin 28.4 PG (26-34); Mean Corpuscular Volume 84.8 fL (80-100); Monocytes Absolute Auto 1000 /uL (0-900); Neutrophils Absolute Auto 18000 /uL (1500-7000); Neutrophils Percent Auto 88.4 % (50-75); Platelet Count 372 X10^3/uL (150-400); Red Blood Cell Count 4.31 X10^6/uL (4.0-5.2); Red Cell Distribution Width 15.9 % (11.6-14.8); White Blood Cell Count 20.3 X10^3/uL (4.5-11.0)
[2021-06-16 08:00] VITALS: BP 120/76; PULSE 75; RESP 16; TEMP 37.2; O2SAT 97
== END 2021-06-16 09:45 | disposition home or self-care (01) ==
LOC: OR 07:59 → LABOR 12:42
PROVIDERS: Family Provider Family Medicine; PCP Family Medicine; Referring Provider Obstetrics & Gynecology; Visit Provider Obstetrics & Gynecology
PROC: 0UT94ZL Resection of Uterus, Supracervical, Percutaneous Endoscopic Approach (ICD-10-PCS; CPT 58542; principal; 2021-06-15 09:45)
DX: N93.9 Abnormal uterine and vaginal bleeding, unspecified (principal); Z30.432 Encounter for removal of intrauterine contraceptive device; N83.8 Other noninflammatory disorders of ovary, fallopian tube and broad ligament
CPT/HCPCS: 58542; 58301; 36415; 82565; 85025; J0171; J0330; J0360; J0690; J1100; J1885; J2250; J2405; J2704; J2765; J2795; J3010

== ENCOUNTER 2021-08-15 13:19 | Emergency (ER) | payer OTHER, MEDICAID, SELFPAY ==
[2021-08-15 13:29] VITALS: BP 188/81; PULSE 61; RESP 18; TEMP 37.1; O2SAT 99; BMI 33.9
--- NOTE | 2021-08-15 13:40 | DI.RAD.S_ITS ---
PROCEDURE: XR CHEST 1V INDICATIONS: chest pain TECHNIQUE: One view of the chest was acquired. COMPARISON: [facility], CR, XR CHEST 1V, 10/06/2020, 10:33. FINDINGS: Surgical changes and devices: None. Lungs and pleura: On this semiupright portable chest examination, no large pneumothorax or large pleural effusions are seen. No focal infiltrates are seen. Mediastinum: The cardiac contours are within normal limits. The aorta demonstrates calcification and tortuosity. Bones and chest wall: Age-appropriate bony degenerative changes are seen. No suspicious bony lesions. Overlying soft tissues appear unremarkable. IMPRESSION: Unremarkable portable chest for age. Dictated by: Arya Mohan M.D. on 08/15/2021 at 13:18 Approved by: Arya Mohan M.D. on 08/15/2021 at 13:18
--- NOTE | 2021-08-15 13:45 | ED_ITS ---
HPI - Chest Pain General Chief Complaint: Chest Pain Stated Complaint: chest pain hard to breathe Time Seen by Provider: 08/15/21 13:45 Source: patient Mode of arrival: Ambulatory Limitations: no limitations Limitations: no limitations History of Present Illness HPI narrative: 56-year-old female comes in complaint of chest pressure that radiates towards her back for the past several days. Patient was vaccinated and had her 3rd booster shot on Monday the 10 of August. She is unsure if she had any symptoms from that because she has been so emotional and upset lately that she is unsure if her symptoms are from that or their actual symptoms. Patient states she has felt hot and cold intermittently. She denies any cough cold or congestion but states she has been blowing her nose a lot. She denies cough. She has had some nausea. But no vomiting. No diarrhea constipation. No swelling her lower extremities. Patient denies any abdominal pain. Patient states she has been very stressed emotionally recently. She becomes tearful. She states it has been a cumulative affective multiple issues she does not wish to give any specifics at but is clear that she does not have any suicidal ideation or intent or thoughts to harm herself or others. Patient states she is not on any daily medications. She did have a hysterectomy on June [address] Leon for endometriosis. She has also had a partial nephrectomy with reconstruction of a new ureter in the past and had surgery for ectopic at 5 months. She is accompanied by her daughter's ely Valderrama. She has allergies to penicillin. No tobacco, occasional alcohol, uses marijuana but no illicit. Dr. Mullins is her primary care. Patient states she has a family history of her mom having hypertension and coronary artery disease. Related Data Previous Rx's Medication Instructions Recorded chlorthalidone 25 mg tablet 25 mg PO DAILY #90 tab 02/17/21 tramadol 50 mg tablet 50 mg PO Q4H PRN #20 tab 06/15/21 amlodipine 5 mg tablet 5 mg PO DAILY #60 tab 06/29/21 ondansetron 4 mg disintegrating 4 mg PO Q6H PRN #7 tab 08/15/21 tablet Allergies Allergy/AdvReac Type Severity Reaction Status Date / Time latex [LATEX] Allergy Mild BREAKOUT.SKIN Verified 08/15/21 13:39 PEELING lisinopril Allergy Mild cough Verified 08/15/21 13:39 Penicillins [PENICILLINS] Allergy Mild RASH Verified 08/15/21 13:39 PAPER TAPE Allergy Unknown Uncoded 08/15/21 13:39 SILK TAPE Allergy Unknown Uncoded 08/15/21 13:39 night shade vegitables Allergy get sick Uncoded 08/15/21 13:39 Review of Systems Review of Systems ROS Unobtainable: All systems reviewed & are unremarkable except as noted in HPI and below Patient History Medical History Abdominal pain Abscess Abscess Acute sinusitis Anxiety Cutaneous abscess of buttock Hematuria HTN (hypertension) Leg cramps Mental health problem Neck pain (03/30/15) Otalgia of right ear Pain in metatarsus of right foot Surgical History History of bilateral salpingectomy History of nephrectomy History of partial hysterectomy Status post dilation and curettage Status post loop electrosurgical excision procedure (LEEP) of cervix Family History Father No problems noted. Mother No problems noted. Social History marital status: household members: children Smoking Status: Former smoker alcohol intake: current substance use type: does not use Smoking Status: Former smoker alcohol intake frequency: holidays/special occasions only Substance Use Type: marijuana Exam Narrative Exam Narrative: GENERAL: Alert and oriented x three, female in mild distress. HEENT: Head normocephalic, atraumatic, EOMI, pupils reactive, face symmetric, moist mucous membranes NECK: Supple, full range of motion CARDIOVASCULAR: Regular rate and rhythm without murmurs, rubs or gallops. No sw elling bilateral lower extremities. RESPIRATORY: Breath sounds equal bilaterally, no wheezes rales or rhonchi. No tachypnea accessory muscle use. ABDOMEN: Soft, nontender. Nondistended. Normoactive bowel sounds all 4 quadrants. No guarding or rebound, rigidity, no mass, no pulsatile mass or brui t. : No CVA tenderness EXTREMITIES: Normal range of motion, no clubbing or edema. Neurovascularly intact NEUROLOGICAL: Cranial nerves II through XII grossly intact. Moving all extremities SKIN: Warm, dry, no petechiae, no rashes or lesions. Initial Vital Signs Initial Vital Signs: Vital Signs Temperature 98.8 F 08/15/21 13:29 Pulse Rate 61 08/15/21 13:29 Respiratory Rate 18 08/15/21 13:29 Blood Pressure 188/81 H 08/15/21 13:29 Pulse Oximetry 99 08/15/21 13:29 Scores HEART Score Heart Score history: Slightly Suspicious Heart Score EKG: Normal Heart Score Age: 45-64 years old Heart Score risk factors: 1-2 risk factors Heart Score troponin: < or = to normal limit Heart Score Total: 2 Course Orders Ordered: ED Orders 08/15/21 13:30 COVID19 -Nasal swab/Pre-Proc Stat 08/15/21 13:40 XR chest 1V Stat BNP [NT-proBNP (BNP-Adult 18+)] Stat Complete Blood Count AUTO DIFF Stat Comprehensive Metabolic Panel Stat D Dimer Stat Lipase Stat Magnesium Stat Troponin & CK Cardiac Panel Stat 08/15/21 13:45 EKG-12 Lead Stat Discontinued Medications Ondansetron HCl (Ondansetron 4 Mg/2 Ml Inj) 4 mg IV NOW ONE Stop: 08/15/21 14:06 Last Admin: 08/15/21 14:40 Dose: 4 mg Documented by: ATAYLOR Reevaluation(s) Reevaluation #1: Patient states she is feeling little bit better at this time. Her blood pressure has improved without intervention although not completely normalized. Her labs and get an COVID swab, chest x-ray and troponin/D-dimer are all negative. Patient is in process of setting follow-up with her physician she is seeing a counselor. We had a long discussion about her current life stressors which has been longstanding. She states that she is quite anxious about being a burden for her children and today's visit has opened up that conversation and has been quite helpful. We did discuss that if she is having recurrent chest pain or new or concerning symptoms to return. That would be appropriate to follow up with her primary care physician as she does have some risk factors in a family history of cardiac disease stress testing would be appropriate. Patient plans to follow-up with Dr. Mullins. Time: 15:04 Vital Signs Vital signs: Vital Signs - 8 hr 08/15/21 13:29 08/15/21 14:45 Temperature 98.8 F Pulse Rate 61 62 Respiratory Rate 18 18 Blood Pressure 188/81 H 162/76 H Pulse Oximetry 99 99 MDM - Chest Pain Lab Data Result diagrams: 08/15/21 13:40 08/15/21 13:40 Labs: Lab Results 08/15/21 08/15/21 08/15/21 Range/Units 13:30 13:40 13:40 WBC 8.6 (4.5-11.0) X10^3/uL RBC 4.48 (4.0-5.2) X10^6/uL Hgb 13.0 (12.0-16.0) g/dL Hct 38.0 (36-46) % MCV 84.8 (80-100) fL MCH 29.1 (26-34) PG MCHC 34.3 (30-36) % RDW 15.0 H (11.6-14.8) % Plt Count 461 H (150-400) X10^3/uL Neut % (Auto) 74.3 (50-75) % Lymph % (Auto) 18.3 L (25-40) % [place] % (Auto) 5.8 (3-14) % Eos % (Auto) 0.7 L (2-4) % Baso % (Auto) 0.9 (0-2) % Neut # (Auto) 6400 (7984-9606) /uL Lymph # (Auto) 1600 (9517-2623) /uL [place] # (Auto) 500 (0-900) /uL Eos # (Auto) 100 (0-450) /uL Baso # (Auto) 100 (0-100) /uL D-Dimer (<230) ng/mL Sodium 136 L (137-145) mmol/L Potassium 3.4 (3.4-5.1) mmol/L Chloride 99 (98-107) mmol/L Carbon Dioxide 29 (22-32) mmol/L BUN 12 (7-17) mg/dL Creatinine 0.71 (0.52-1.04) mg/dL Estimated GFR > 60.0 (>60) mL/min BUN/Creatinine Ratio 16.9 (6-22) Glucose 86 (70-100) mg/dL Calcium 9.7 (8.4-10.2) mg/dL Magnesium 2.2 (1.6-2.3) mg/dL Total Bilirubin 1.0 (0.2-1.3) mg/dL AST 40 H (14-36) IU/L ALT 32 (<35) IU/L Alkaline Phosphatase 84 (38-126) U/L Total Creatine Kinase 127 (30-135) U/L CK-MB (CK-2) 1.26 (<2.37) ng/mL CK-MB (CK-2) Rel Index 1.0 L (1.5-5.0) % Troponin I < 0.012 (0.01-0.034) ng/mL NT-Pro-B Natriuret Pep (<125) pg/mL Total Protein 8.3 H (6.3-8.2) g/dL Albumin 4.6 (3.5-5.0) g/dL Globulin 3.7 (1.7-4.1) g/dL Albumin/Globulin Ratio 1.2 (1.0-2.8) Lipase 85 (23-300) U/L SARS-CoV-2 (PCR) Negative (Negative) 08/15/21 08/15/21 Range/Units 13:40 13:40 WBC (4.5-11.0) X10^3/uL RBC (4.0-5.2) X10^6/uL Hgb (12.0-16.0) g/dL Hct (36-46) % MCV (80-100) fL MCH (26-34) PG MCHC (30-36) % RDW (11.6-14.8) % Plt Count (150-400) X10^3/uL Neut % (Auto) (50-75) % Lymph % (Auto) (25-40) % [place] % (Auto) (3-14) % Eos % (Auto) (2-4) % Baso % (Auto) (0-2) % Neut # (Auto) (3383-6989) /uL Lymph # (Auto) (2256-2819) /uL [place] # (Auto) (0-900) /uL Eos # (Auto) (0-450) /uL Baso # (Auto) (0-100) /uL D-Dimer < 200 (<230) ng/mL Sodium (137-145) mmol/L Potassium (3.4-5.1) mmol/L Chloride (98-107) mmol/L Carbon Dioxide (22-32) mmol/L BUN (7-17) mg/dL Creatinine (0.52-1.04) mg/dL Estimated GFR (>60) mL/min BUN/Creatinine Ratio (6-22) Glucose (70-100) mg/dL Calcium (8.4-10.2) mg/dL Magnesium (1.6-2.3) mg/dL Total Bilirubin (0.2-1.3) mg/dL AST (14-36) IU/L ALT (<35) IU/L Alkaline Phosphatase (38-126) U/L Total Creatine Kinase (30-135) U/L CK-MB (CK-2) (<2.37) ng/mL CK-MB (CK-2) Rel Index (1.5-5.0) % Troponin I (0.01-0.034) ng/mL NT-Pro-B Natriuret Pep 67 (<125) pg/mL Total Protein (6.3-8.2) g/dL Albumin (3.5-5.0) g/dL Globulin (1.7-4.1) g/dL Albumin/Globulin Ratio (1.0-2.8) Lipase (23-300) U/L SARS-CoV-2 (PCR) (Negative) Imaging Data Chest x-ray: Radiologist's Impression: [address] [address] XRay Report Signed Patient: Daksha Verduzco MR#: [id number] : 1965 Acct:[id number] Age/Sex: 56 / F Date of Service: 08/15/21 Loc: ED Accession Number: [id number] ?? Procedure: XR chest 1V Ordering Provider: Darling Bustamante D.O. PROCEDURE:? XR CHEST 1V ? INDICATIONS:? chest pain ? TECHNIQUE:? One view of the chest was acquired.? ? [facility] ? FINDINGS:? ? Surgical changes and devices:? None.? ? Lungs and pleura:? On this semiupright portable chest examination, no large pneumothorax or large pleural effusions are seen.? No focal infiltrates are seen.? ? Mediastinum:? The cardiac contours are within normal limits. The aorta demonstrates calcification and tortuosity. ? Bones and chest wall:? Age-appropriate bony degenerative changes are seen.? No suspicious bony lesions.? Overlying soft tissues appear unremarkable.? IMPRESSION:? Unremarkable portable chest for age. ? ? Dictated by: Arya Mohan M.D. on 08/15/2021 at 13:18 ? ? Approved by: Arya Mohan M.D. on 08/15/2021 at 13:18?? ECG Data Attestation: I personally reviewed and interpreted this ECG as follows: Prior ECG tracings: available for review Interpretation: Sinus rhythm rate of 61 MS 164 QRS is [address] elevation depression. EKG from 10/06/2020 appears similar with no new changes. MDM Narrative Medical decision making narrative: This is a 56-year-old female comes emergency department complaint of chest pressure radiating to her back with sometimes symptoms of shortness of breath that is worse when she is emotionally upset. She states it has been present constantly for several days. She states she has some pretty significant emotional and social stressors thinks this may be the cause. She is also concerned about coronavirus. She has been vaccinated boosted on in the past week. Patient's chest x-ray is negative, COVID swab is negative. Patient's labs including D-dimer she had recent surgery in June, troponin are all negative. Discharge Plan Departure Patient Disposition: Home Clinical Impression: Chest pain Instructions: DI for Chest Pain Activity Restrictions/Additional Instructions: Follow-up with Dr. Mullins for recheck. I would discuss with your physician also the things that are impacting and stressing you recently they may have some additional resources or help available if you are interested. Continue home medications as prescribed. Prescription for antinausea medicine sent to [facility]. You may take 1 tablet every 6 hours as needed for nausea. Please return for fevers, new or worsening chest pain, shortness of breath, lightheadedness or passing out, persistent vomiting or other new or concerning symptoms. Prescriptions: New ondansetron 4 mg tablet,disintegrating 4 mg PO Q6H PRN (Reason: nausea and vomiting) Qty: 7 0RF No Action chlorthalidone 25 mg tablet 25 mg PO DAILY Qty: 90 3RF amlodipine 5 mg tablet 5 mg PO DAILY Qty: 60 3RF tramadol 50 mg tablet 50 mg PO Q4H PRN (Reason: pain) Qty: 20 0RF Referrals: Oracio Mullins MD [Primary Care Provider] -
[2021-08-15 13:56] LABS: Add Manual Diff / Slide Review NO; Basophils Absolute Auto 100 /uL (0-100); Basophils Percent Auto 0.9 % (0-2); Eosinophils Absolute Auto 100 /uL (0-450); Eosinophils Percent Auto 0.7 % (2-4); Lymphocytes Absolute Auto 1600 /uL (1100-4500); Lymphocytes Percent Auto 18.3 % (25-40); Mean Corpuscular HGB Conc 34.3 % (30-36); Mean Corpuscular Hemoglobin 29.1 PG (26-34); Mean Corpuscular Volume 84.8 fL (80-100); Monocytes Absolute Auto 500 /uL (0-900); Monocytes Percent Auto 5.8 % (3-14); Neutrophils Absolute Auto 6400 /uL (1500-7000); Neutrophils Percent Auto 74.3 % (50-75); Platelet Count 461 X10^3/uL (150-400); Red Blood Cell Count 4.48 X10^6/uL (4.0-5.2); White Blood Cell Count 8.6 X10^3/uL (4.5-11.0)
[2021-08-15 14:10] LABS: Alanine Aminotransferase 32 IU/L (<35); Albumin 4.6 g/dL (3.5-5.0); Albumin Globulin Ratio 1.2 (1.0-2.8); Alkaline Phosphatase 84 U/L (38-126); Aspartate Aminotransferase 40 IU/L (14-36); BUN Creatinine Ratio 16.9 (6-22); Blood Urea Nitrogen 12 mg/dL (7-17); Calcium 9.7 mg/dL (8.4-10.2); Carbon Dioxide 29 mmol/L (22-32); Chloride 99 mmol/L (98-107); Creatine Kinase 127 U/L (30-135); Estimated Glomerular Filt Rate > 60.0 mL/min (>60); Globulin 3.7 g/dL (1.7-4.1); Glucose 86 mg/dL (70-100); Lipase 85 U/L (23-300); Magnesium 2.2 mg/dL (1.6-2.3); Potassium 3.4 mmol/L (3.4-5.1); Sodium 136 mmol/L (137-145); Total Protein 8.3 g/dL (6.3-8.2)
[2021-08-15 14:11] LABS: COVID19 -Nasal RAPID Negative (Negative)
[2021-08-15 14:19] LABS: NT-proBNP (BNP-Adult 18+) 67 pg/mL (<125)
[2021-08-15 14:21] LABS: Troponin I < 0.012 ng/mL (0.01-0.034)
[2021-08-15 14:25] LABS: Creatine Kinase MB 1.26 ng/mL (<2.37); HEMOLYSIS 44 (0-50)
[2021-08-15 14:38] LABS: D Dimer < 200 ng/mL (<230)
[2021-08-15] MEDS: ONDANSETRON 4 MG/2 ML INJ IV (14:40)
[2021-08-15 14:45] VITALS: BP 162/76; PULSE 62; RESP 18; O2SAT 99
--- NOTE | 2021-08-15 14:51 | PC.NURSE ---
Pt tearful in room, pt states she was discussing recent life things, spoke to pt in soft voice and actively listened.
== END 2021-08-15 15:22 | disposition home or self-care (01) ==
PROVIDERS: Emergency Provider Emergency Medicine; Family Provider Family Medicine; PCP Family Medicine
DX: R07.89 Other chest pain (principal); Z88.0 Allergy status to penicillin; Z88.8 Allergy status to other drugs, medicaments and biological substances; Z87.891 Personal history of nicotine dependence; Z20.822 Contact with and (suspected) exposure to COVID-19
CPT/HCPCS: 36415; 71045; 80053; 82550; 82553; 83690; 83735; 83880; 84484; 85025; 85379; 87635; 93005; 93010; 96374; 99284; C9803; J2405

== ENCOUNTER → 2021-11-25 16:47 | Outpatient (CLI) | payer OTHER, MEDICAID, SELFPAY | PROVIDERS: Family Provider Family Medicine; PCP Family Medicine; Visit Provider Nurse Practitioner Family | DX: L02.91 Cutaneous abscess, unspecified (principal) | CPT/HCPCS: 87070; 87075; 87205 ==

== ENCOUNTER → 2022-01-13 11:08 | Outpatient (CLI) | payer OTHER, MEDICAID, SELFPAY ==
--- NOTE | 2022-01-13 11:10 | DI.RAD.S_ITS ---
PROCEDURE: XR TIBIA FIBULA RT 2V INDICATIONS: lower leg injury TECHNIQUE: 2 views of the tibia and fibula were acquired. COMPARISON: None. FINDINGS: Bones: No fractures or dislocations. No suspicious bony lesions. Soft tissues: No suspicious soft tissue calcifications or masses. IMPRESSION: Unremarkable tibia and fibula radiographs Approved by: Epi Hightower M.D. on 01/13/2022 at 13:03
== END ==
PROVIDERS: Family Provider Family Medicine; PCP Family Medicine; Referring Provider Nurse Practitioner Family; Visit Provider Nurse Practitioner Family
DX: S80.11XA Contusion of right lower leg, initial encounter (principal)
CPT/HCPCS: 73590

== ENCOUNTER 2022-05-26 14:11 | Emergency (ER) | payer OTHER, MEDICAID, SELFPAY ==
--- NOTE | 2022-05-26 15:21 | PC.NURSE ---
patient was called at 1430 and 1452, no anwer from lobby. a patient waiting said she got up and left.
== END 2022-05-26 14:52 | disposition left against medical advice (07) ==
PROVIDERS: Emergency Provider Emergency Medicine; Family Provider Family Medicine; PCP Family Medicine

== ENCOUNTER 2022-05-26 18:24 | Emergency (ER) | payer OTHER, MEDICAID, SELFPAY ==
[2022-05-26] VITALS (8 sets, daily range): BP systolic 170–202; BP diastolic 86–95; PULSE 60–70; RESP 14–25; TEMP 36.4; O2SAT 92–99
--- NOTE | 2022-05-26 18:44 | DI.CT.S_ITS ---
PROCEDURE: CT HEAD/BRAIN WO CON INDICATIONS: Seizure TECHNIQUE: Noncontrast 4.5 mm thick angled axial sections acquired from the foramen magnum to the vertex, with coronal and sagittal reformats. For radiation dose reduction, the following was used: automated exposure control, adjustment of mA and/or kV according to patient size. COMPARISON: None. FINDINGS: Image quality: Excellent. CSF spaces: Basal cisterns are patent. No extra-axial fluid collections. Ventricles are normal in size and shape. Brain: No midline shift. No intracranial masses or hemorrhage. Cuevas-white matter interface is normal. Skull and face: Calvarium and visualized facial bones are intact, without suspicious lesions. Sinuses: Visualized sinuses and mastoids are clear. IMPRESSION: Normal noncontrast head CT, without a cause of seizure identified. Dictated by: Arya Mohan M.D. on 05/26/2022 at 18:39 Approved by: Arya Mohan M.D. on 05/26/2022 at 18:40
--- NOTE | 2022-05-26 18:45 | ED.SEIZURE ---
HPI - Seizure General Chief Complaint: Seizure Stated Complaint: seizures Time Seen by Provider: 05/26/22 18:32 History of Present Illness HPI Narrative: Patient brought herself here to the emergency department. Drove herself here from home. Patient states she is had seizures since yesterday. She states yesterday morning they started and would not stop, however she was able to get her bed at 2:30 p.m. yesterday afternoon and did not awake until 430 this morning. Patient states she has generalized seizures. She is not on any medications for this. She is followed by her primary care doctor Harpreet who has not started her on any medications because she states they have to be witnessed 1st. She says she is had multiple EEGs in the past. No MRIs in the past. And no CT scan of the head. Patient is awake alert oriented x4. She states she has some bruising on her arms from her convulsions. No tongue biting. No incontinence. She states she lives with family but no one was home yesterday. No witnesses. She did not call EMS. Denies any new stressors. Denies any drug or alcohol abuse. States her child has seizures as well. Patient in no distress at this time Related Data Previous Rx's Medication Instructions Recorded ferrous gluconate 324 mg (37.5 mg 324 mg PO DAILY #90 tabs 12/02/21 iron) tablet amlodipine 5 mg tablet 5 mg PO DAILY #90 tabs 03/11/22 chlorthalidone 25 mg tablet 25 mg PO DAILY #90 tabs 03/11/22 Allergies Allergy/AdvReac Type Severity Reaction Status Date / Time latex [LATEX] Allergy Mild BREAKOUT.SKIN Verified 05/26/22 18:47 PEELING lisinopril Allergy Mild cough Verified 05/26/22 18:47 Penicillins [PENICILLINS] Allergy Mild RASH Verified 05/26/22 18:47 PAPER TAPE Allergy Unknown Uncoded 05/26/22 18:47 SILK TAPE Allergy Unknown Uncoded 05/26/22 18:47 night shade vegitables Allergy get sick Uncoded 05/26/22 18:47 Review of Systems Review of Systems Narrative: GENERAL: Denies chills, fatigue, malaise, fever, sweats. HEENT: Denies sinus pain, ear pain, sore throat RESPIRATORY: Denies dyspnea, cough CARDIOVASCULAR: Denies chest pain, palpitations GASTROINTESTINAL: Denies nausea, vomiting, abdominal pain : Denies dysuria, frequency, hematuria MUSCULOSKELETAL: denies muscle or bony pain SKIN: Denies rash, skin lesions NEUROLOGIC: Denies weakness, numbness, positive seizure, positive headache ROS Unobtainable: All systems reviewed & are unremarkable except as noted in HPI and below Patient History Medical History Abdominal pain Abscess Abscess Acute sinusitis Anxiety Cutaneous abscess of buttock Hematuria HTN (hypertension) Leg cramps Mental health problem Neck pain (03/30/15) Otalgia of right ear Pain in metatarsus of right foot Surgical History History of bilateral salpingectomy History of nephrectomy History of partial hysterectomy Status post dilation and curettage Status post loop electrosurgical excision procedure (LEEP) of cervix Family History Father No problems noted. Mother No problems noted. Social History marital status: household members: children Smoking Status: Former smoker alcohol intake: current substance use type: does not use Smoking Status: Former smoker alcohol intake frequency: holidays/special occasions only Substance Use Type: marijuana Exam Narrative Exam Narrative: GENERAL: in no distress, not toxic not dyspneic HEAD: Normocephalic. EYES: Pupils equal round No scleral icterus. ENT: Mucous membranes moist. No tongue abrasions. NECK: Trachea midline. CARDIOVASCULAR: Regular rate and rhythm without murmurs RESPIRATORY: Clear to auscultation. Breath sounds equal bilaterally. No wheezes, rales, or rhonchi. GASTROINTESTINAL: Abdomen soft, non-tender EXTREMITIES: No gross deformities. Small punctate arm ecchymosis in healing state. Skin intact otherwise. BACK: No flank tenderness. NEURO: AOx4. 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 Negative pronator drift. SKIN: Warm and dry PSYCH: Patient is anxious, is cooperative Initial Vital Signs Initial Vital Signs: Vital Signs Pulse Rate 66 05/26/22 18:32 Blood Pressure 202/95 H 05/26/22 18:32 Pulse Oximetry 99 05/26/22 18:32 Course Course Course Narrative: No new issues during course of stay Orders Ordered: ED Orders 05/26/22 18:44 CT head/brain wo con Stat Complete Blood Count AUTO DIFF Stat Comprehensive Metabolic Panel Stat Ethanol (ETOH) Stat 05/26/22 18:50 Urine Drug Screen, Rapid Stat Reevaluation(s) Reevaluation #1: Spoke with patient and partner at bedside. Partner is driving her home. Lives with her. Reviewed results with patient. At this time they are reassuring. I did speak with Dr. Mitchell, on-call for Dr. Mullins, at this time no medications to be prescribed. He will inform Dr. Mullins patient to be seen tomorrow for re-evaluation and continued evaluation for her symptoms. Blood pressure has improved. She states she was nervous and feeling much better now. Blood pressure 170/92. No headache. No seizures during course of stay. She understands no driving or operating machinery Time: 20:44 Consultations Consultation #1: Spoke with Dr. Mitchell, on-call for Dr. Mullins, at this time he does not recommend any seizure medications. No changes in her home medications. Patient to see Dr. Mullins tomorrow or Monday, he will inform the office that patient to be seen. May discharge patient home. Time: 20:45 Vital Signs Vital signs: Vital Signs - 8 hr 05/26/22 18:39 05/26/22 18:32 05/26/22 18:32 Temperature 97.6 F Pulse Rate 67 66 Respiratory Rate 16 Blood Pressure 202/95 H 202/95 H Pulse Oximetry 99 99 Oxygen Delivery Method Room Air 05/26/22 19:00 05/26/22 19:01 05/26/22 19:01 Temperature Pulse Rate 70 65 Respiratory Rate 25 H 25 H Blood Pressure 181/86 H Pulse Oximetry 99 99 Oxygen Delivery Method 05/26/22 19:48 05/26/22 20:00 05/26/22 20:30 Temperature Pulse Rate 65 63 62 Respiratory Rate 21 14 15 Blood Pressure Pulse Oximetry 92 97 98 Oxygen Delivery Method 05/26/22 20:40 05/26/22 20:40 Temperature Pulse Rate 60 Respiratory Rate 21 Blood Pressure 170/92 H Pulse Oximetry 99 Oxygen Delivery Method MDM - Seizure Differential Diagnosis Differential diagnosis: Likely intractable seizure disorder, febrile convulsion, focal seizure, generalized seizure, new onset seizure, epileptic seizure, status epilepticus and other (Pseudoseizures) Lab Data Result diagrams: 05/26/22 18:44 05/26/22 18:44 Labs: Lab Results 05/26/22 05/26/22 05/26/22 Range/Units 18:44 18:44 18:50 WBC 9.2 (4.5-11.0) X10^3/uL RBC 4.54 (4.0-5.2) X10^6/uL Hgb 13.6 (12.0-16.0) g/dL Hct 39.8 (36-46) % MCV 87.6 (80-100) fL MCH 29.9 (26-34) PG MCHC 34.1 (30-36) % RDW 15.1 H (11.6-14.8) % Plt Count 401 H (150-400) X10^3/uL Neut % (Auto) 62.3 (50-75) % Lymph % (Auto) 26.8 (25-40) % [place] % (Auto) 8.0 (3-14) % Eos % (Auto) 2.0 (2-4) % Baso % (Auto) 0.9 (0-2) % Neut # (Auto) 5700 (9935-6790) /uL Lymph # (Auto) 2500 (3765-2542) /uL [place] # (Auto) 700 (0-900) /uL Eos # (Auto) 200 (0-450) /uL Baso # (Auto) 100 (0-100) /uL Sodium 138 (137-145) mmol/L Potassium 3.3 L (3.4-5.1) mmol/L Chloride 97 L (98-107) mmol/L Carbon Dioxide 30 (22-32) mmol/L BUN 12 (7-17) mg/dL Creatinine 0.65 (0.52-1.04) mg/dL Estimated GFR > 60 (>60) mL/min BUN/Creatinine Ratio 18.5 (6-22) Glucose 98 (70-100) mg/dL Calcium 9.1 (8.4-10.2) mg/dL Total Bilirubin 0.4 (0.2-1.3) mg/dL AST 32 (14-36) IU/L ALT 29 (<35) IU/L Alkaline Phosphatase 84 (38-126) U/L Total Protein 8.1 (6.3-8.2) g/dL Albumin 4.4 (3.5-5.0) g/dL Globulin 3.7 (1.7-4.1) g/dL Albumin/Globulin Ratio 1.2 (1.0-2.8) U Opiates 300ng/mL cut Negative (Negative) Ur Oxycodone Screen Negative (Negative) Urine Methadone Screen Negative (Negative) Ur Barbiturates Screen Negative (Negative) U Tricyclic Antidepress Negative (Negative) Ur Phencyclidine Scrn Negative (Negative) Ur Amphetamines Screen Negative (Negative) U Methamphetamines Scrn Negative (Negative) Ur MDMA Scrn (Ecstasy) Negative (Negative) U Benzodiazepines Scrn Negative (Negative) Urine Cocaine Screen Negative (Negative) U Marijuana (THC) Screen Positive H (Negative) Ethyl Alcohol < 10 ( - 10) mg/dL Urine Dip Bedside Urine Glucose Negative Bedside Urine Bilirubin - Negative Bedside Urine Ketone - Negative Urine Specific [place] 1.005 Bedside Urine Occult Blood - Negative Bedside Urine pH 7.0 Bedside Urine Protein - Negative Bedside Urine Urobilinogen - Negative Bedside Urine Nitrite - Negative Bedside Urine Leukocytes - Negative Esterase Imaging Data CT scan - head: Radiologist's Impression: [address] [address] [address] Scan Report Signed Patient: Daksha Verduzco MR#: [id number] : 1965 Acct:[id number] Age/Sex: 57 / F Date of Service: 05/26/22 Loc: ED Accession Number: [id number] ?? Procedure: CT head/brain wo con Ordering Provider: David Salazar MD PROCEDURE:? CT HEAD/BRAIN WO CON ? INDICATIONS:? Seizure ? TECHNIQUE:? Noncontrast 4.5 mm thick angled axial sections acquired from the foramen magnum to the vertex, with coronal and sagittal reformats.? For radiation dose reduction, the following was used:? automated exposure control, adjustment of mA and/or kV according to patient size.? ? COMPARISON:? None. ? FINDINGS:? Image quality:? Excellent.? ? CSF spaces:? Basal cisterns are patent.? No extra-axial fluid collections.? Ventricles are normal in size and shape.? ? Brain:? No midline shift.? No intracranial masses or hemorrhage.? Cuevas-white matter interface is normal.? ? Skull and face:? Calvarium and visualized facial bones are intact, without suspicious lesions.? ? Sinuses:? Visualized sinuses and mastoids are clear.? ? ? IMPRESSION:? Normal noncontrast head CT, without a cause of seizure identified. ? ? Dictated by: Arya Mohan M.D. on 05/26/2022 at 18:39 ? ? Approved by: Arya Mohan M.D. on 05/26/2022 at 18:40 ? MDM Narrative Medical decision making narrative: Appropriate for discharge home. Patient on seizure precautions here no seizures during course of stay. Patient has been awake alert oriented x4. Partner/roommate at bedside to drive patient. Patient understands no operating machinery or driving until cleared by Dr. Mullins. I did speak with primary care on-call. No medications to be started. Patient to follow-up in office 1st. Not toxic at discharge. Return precautions reviewed with patient. Patient desires discharge home. Blood pressure improved, likely due to anxiety she states. No headache at time of discharge. No chest complaints. Discharge Plan Departure Patient Disposition: Home Clinical Impression: Seizure Instructions: DI for Seizure (Not Epilepsy/Seizure Disorder) Activity Restrictions/Additional Instructions: No driving or operating machinery. Please call Dr. Mullins's office in the morning for office time and re-evaluation for your symptoms and needing further workup for possible seizures. May continue home medications. Return if worse if any questions or concerns Prescriptions: No Action ferrous gluconate 324 mg (37.5 mg iron) tablet 324 mg PO DAILY Qty: 90 1RF chlorthalidone 25 mg tablet 25 mg PO DAILY Qty: 90 2RF amlodipine 5 mg tablet 5 mg PO DAILY Qty: 90 2RF Referrals: Oracio Mullins MD [Primary Care Provider] - Visit Report Forms: Patient Portal/API
[2022-05-26 19:00] LABS: Add Manual Diff / Slide Review NO; Basophils Absolute Auto 100 /uL (0-100); Basophils Percent Auto 0.9 % (0-2); Eosinophils Absolute Auto 200 /uL (0-450); Hematocrit 39.8 % (36-46); Hemoglobin 13.6 g/dL (12.0-16.0); Lymphocytes Absolute Auto 2500 /uL (1100-4500); Lymphocytes Percent Auto 26.8 % (25-40); Mean Corpuscular HGB Conc 34.1 % (30-36); Mean Corpuscular Hemoglobin 29.9 PG (26-34); Mean Corpuscular Volume 87.6 fL (80-100); Monocytes Absolute Auto 700 /uL (0-900); Neutrophils Absolute Auto 5700 /uL (1500-7000); Neutrophils Percent Auto 62.3 % (50-75); Platelet Count 401 X10^3/uL (150-400); Red Blood Cell Count 4.54 X10^6/uL (4.0-5.2); Red Cell Distribution Width 15.1 % (11.6-14.8); White Blood Cell Count 9.2 X10^3/uL (4.5-11.0)
[2022-05-26 19:13] LABS: Alanine Aminotransferase 29 IU/L (<35); Albumin 4.4 g/dL (3.5-5.0); Albumin Globulin Ratio 1.2 (1.0-2.8); Alkaline Phosphatase 84 U/L (38-126); Aspartate Aminotransferase 32 IU/L (14-36); BUN Creatinine Ratio 18.5 (6-22); Bilirubin Total 0.4 mg/dL (0.2-1.3); Blood Urea Nitrogen 12 mg/dL (7-17); Calcium 9.1 mg/dL (8.4-10.2); Carbon Dioxide 30 mmol/L (22-32); Chloride 97 mmol/L (98-107); Estimated Glomerular Filt Rate > 60 mL/min (>60); Ethanol (ETOH) < 10 mg/dL; Globulin 3.7 g/dL (1.7-4.1); Glucose 98 mg/dL (70-100); Potassium 3.3 mmol/L (3.4-5.1); Sodium 138 mmol/L (137-145); Total Protein 8.1 g/dL (6.3-8.2)
[2022-05-26 19:22] LABS: HEMOLYSIS < 15 (0-50)
[2022-05-26 20:06] LABS: UR Morphine/Opiate cutoff 300 Negative (Negative); Ur Creatinine Normal (Normal); Ur Specific Gravity Normal (Normal); Urine Amphetamines Negative (Negative); Urine Barbiturates Negative (Negative); Urine Benzodiazepines Negative (Negative); Urine Cocaine Negative (Negative); Urine MDMA Negative (Negative); Urine Methadone Negative (Negative); Urine Methamphetamines Negative (Negative); Urine Oxycodone Negative (Negative); Urine Phencyclidine Negative (Negative); Urine Tetrahydrocannabinol Positive (Negative); Urine Tricyclic Antidepressant Negative (Negative); Urine pH Normal (Normal)
== END 2022-05-26 20:52 | disposition home or self-care (01) ==
PROVIDERS: Emergency Provider Emergency Medicine; Family Provider Family Medicine; PCP Family Medicine
DX: R56.9 Unspecified convulsions (principal)
CPT/HCPCS: 36415; 70450; 80053; 80305; 80320; 81003; 85025; 99283; 99284

== ENCOUNTER 2022-08-02 23:50 | Emergency (ER) | payer OTHER, MEDICAID, SELFPAY ==
[2022-08-02 23:54] VITALS: BP 212/96; PULSE 60; RESP 20; TEMP 36.4; O2SAT 100; BMI 33.5
--- NOTE | 2022-08-03 00:43 | DI.RAD.S_ITS ---
PROCEDURE: XR CHEST 1V INDICATIONS: chest pain TECHNIQUE: One view of the chest was acquired. COMPARISON: [facility], CR, XR CHEST 1V, 08/15/2021, 14:04. FINDINGS: Surgical changes and devices: None. Lungs and pleura: Lungs are clear. No pleural effusions or pneumothorax. Mediastinum: Mediastinal contours appear normal. Heart size is normal. Bones and chest wall: No suspicious bony lesions. Overlying soft tissues appear unremarkable. IMPRESSION: 1. No acute cardiopulmonary disease. Dictated by: Matty Parkinson M.D. on 08/03/2022 at 2:17 Approved by: Matty Parkinson M.D. on 08/03/2022 at 2:20
[2022-08-03 00:58] VITALS: BP 193/92; PULSE 56; RESP 24; O2SAT 98
[2022-08-03 01:20] LABS: INR 1.1 (0.9-1.3); Prothrombin Time 12.4 SECONDS (10.1-12.7)
[2022-08-03 01:22] LABS: PTT Partial Thromboplastin Tim 35 SECONDS (26-36)
[2022-08-03 01:23] LABS: Add Manual Diff / Slide Review NO; Basophils Absolute Auto 0 /uL (0-100); Basophils Percent Auto 0.5 % (0-2); Eosinophils Absolute Auto 100 /uL (0-450); Eosinophils Percent Auto 0.9 % (2-4); Hematocrit 40.8 % (36-46); Hemoglobin 14.1 g/dL (12.0-16.0); Lymphocytes Absolute Auto 1100 /uL (1100-4500); Mean Corpuscular HGB Conc 34.5 % (30-36); Mean Corpuscular Hemoglobin 29.6 PG (26-34); Mean Corpuscular Volume 85.8 fL (80-100); Monocytes Absolute Auto 500 /uL (0-900); Monocytes Percent Auto 5.3 % (3-14); Neutrophils Absolute Auto 8000 /uL (1500-7000); Neutrophils Percent Auto 82.3 % (50-75); Platelet Count 365 X10^3/uL (150-400); Red Blood Cell Count 4.76 X10^6/uL (4.0-5.2); Red Cell Distribution Width 14.6 % (11.6-14.8); White Blood Cell Count 9.7 X10^3/uL (4.5-11.0)
[2022-08-03 01:25] LABS: Alanine Aminotransferase 40 IU/L (<35); Albumin 4.6 g/dL (3.5-5.0); Albumin Globulin Ratio 1.1 (1.0-2.8); Alkaline Phosphatase 100 U/L (38-126); Aspartate Aminotransferase 41 IU/L (14-36); BUN Creatinine Ratio 23.9 (6-22); Bilirubin Total 0.6 mg/dL (0.2-1.3); Blood Urea Nitrogen 16 mg/dL (7-17); Calcium 9.5 mg/dL (8.4-10.2); Carbon Dioxide 31 mmol/L (22-32); Chloride 91 mmol/L (98-107); Creatine Kinase 158 U/L (30-135); Estimated Glomerular Filt Rate > 60 mL/min (>60); Globulin 4.1 g/dL (1.7-4.1); Glucose 123 mg/dL (70-100); HEMOLYSIS < 15 (0-50); Lipase 116 U/L (23-300); Potassium 3.1 mmol/L (3.4-5.1); Sodium 135 mmol/L (137-145); Total Protein 8.7 g/dL (6.3-8.2)
[2022-08-03 01:36] LABS: Troponin I < 0.012 ng/mL (0.01-0.034)
[2022-08-03 01:40] LABS: CKMB % Relative Index 1.5 % (1.5-5.0); Creatine Kinase MB 2.32 ng/mL (<2.37)
--- NOTE | 2022-08-03 02:14 | ED_ITS ---
HPI - Chest Pain General Chief Complaint: Chest Pain Stated Complaint: covid positive, chest pain, sob, back pain Time Seen by Provider: 08/03/22 00:16 Source: patient Mode of arrival: Ambulatory Limitations: no limitations History of Present Illness HPI narrative: Patient is a 57-year-old female who is known to be COVID positive who is here for evaluation of a couple days of shortness of breath and chest discomfort and back pain. States that the chest discomfort is both sides in his behind her sternum and across the top of her chest. She is also having back pain. Has been coughing. Has nonproductive cough. Discomfort not worse with palpation or movement. No fevers. Insert have a history of high blood pressure. Is taking all her medications as directed. Related Data Previous Rx's Medication Instructions Recorded ferrous gluconate 324 mg (37.5 mg 324 mg PO DAILY #90 tabs 12/02/21 iron) tablet amlodipine 5 mg tablet 5 mg PO DAILY #90 tabs 03/11/22 chlorthalidone 25 mg tablet 25 mg PO DAILY #90 tabs 03/11/22 Allergies Allergy/AdvReac Type Severity Reaction Status Date / Time latex [LATEX] Allergy Mild BREAKOUT.SKIN Verified 07/27/22 14:04 PEELING lisinopril Allergy Mild cough Verified 07/27/22 14:04 Penicillins [PENICILLINS] Allergy Mild RASH Verified 07/27/22 14:04 PAPER TAPE Allergy Unknown Uncoded 07/27/22 14:04 SILK TAPE Allergy Unknown Uncoded 07/27/22 14:04 night shade vegitables Allergy get sick Uncoded 07/27/22 14:04 Review of Systems Constitutional Constitutional: Reports system reviewed and no additional complaints, except as documented Cardiovascular Cardiovascular: Reports system reviewed and no additional complaints, except as documented Respiratory Respiratory: Reports system reviewed and no additional complaints, except as documented Gastrointestinal Gastrointestinal: Reports system reviewed and no additional complaints, except as documented Integumentary/Breasts Skin/Breast: Reports system reviewed and no additional complaints, except as documented Hematologic/Lymphatic On Anticoagulants: No Patient History Medical History Abdominal pain Abscess Abscess Acute sinusitis Anxiety Cutaneous abscess of buttock Hematuria HTN (hypertension) Leg cramps Mental health problem Neck pain (03/30/15) Otalgia of right ear Pain in metatarsus of right foot Seizure Surgical History History of bilateral salpingectomy History of nephrectomy History of partial hysterectomy Status post dilation and curettage Status post loop electrosurgical excision procedure (LEEP) of cervix Family History Father No problems noted. Mother No problems noted. Social History marital status: household members: children Smoking Status: Former smoker alcohol intake: current substance use type: does not use Smoking Status: Former smoker tobacco type: cigarettes alcohol intake frequency: holidays/special occasions only Substance Use Type: marijuana Exam Initial Vital Signs Initial Vital Signs: Vital Signs Temperature 97.6 F 08/02/22 23:54 Pulse Rate 60 08/02/22 23:54 Respiratory Rate 20 08/02/22 23:54 Blood Pressure 212/96 H 08/02/22 23:54 Pulse Oximetry 100 08/02/22 23:54 Oxygen Delivery Method 08/02/22 23:54 HENMT Head: normal to inspection and normocephalic Resp Effort & Inspection: normal respiratory effort, not labored and no respiratory distress Auscultation: wheezes Cardio Rate: bradycardic Rhythm: regular rhythm Skin General: no rashes or lesions noted Neuro General: patient alert, patient awake, patient oriented x3 and moves all extremities Extrem General: No edema Scores HEART Score Heart Score history: Slightly Suspicious Heart Score EKG: Normal Heart Score Age: 45-64 years old Heart Score risk factors: 1-2 risk factors Heart Score troponin: < or = to normal limit Heart Score Total: 2 Course Orders Ordered: ED Orders 08/03/22 00:43 XR chest 1V Stat COVID19 -Nasal RAPID/Pre-Proc Stat EKG-12 Lead Stat 08/03/22 00:54 Complete Blood Count AUTO DIFF Stat Comprehensive Metabolic Panel Stat Lipase Stat Magnesium Stat Partial Thromboplastin Time Stat Prothrombin Time INR Stat Troponin & CK Cardiac Panel Stat Discontinued Medications Albuterol (Albuterol Hfa Mdi 60 Puff/8 Gm Inhaler) 2 puff INH NOW ONE Stop: 08/03/22 02:15 Last Admin: 08/03/22 02:38 Dose: 2 puff Documented By: ADRYAN Vital Signs Vital signs: Vital Signs - 8 hr 08/02/22 23:54 08/03/22 00:58 Temperature 97.6 F Pulse Rate 60 56 L Respiratory Rate 20 24 Blood Pressure 212/96 H 193/92 H Pulse Oximetry 100 98 Oxygen Delivery Method Room Air Room Air MDM - Chest Pain Medical Records Data Attestation: I reviewed the patient's medical records. Lab Data Attestation: I reviewed the patient's lab results. Result diagrams: 08/03/22 00:54 08/03/22 00:54 Labs: Lab Results 08/03/22 08/03/22 08/03/22 Range/Units 00:54 00:54 00:54 WBC 9.7 (4.5-11.0) X10^3/uL RBC 4.76 (4.0-5.2) X10^6/uL Hgb 14.1 (12.0-16.0) g/dL Hct 40.8 (36-46) % MCV 85.8 (80-100) fL MCH 29.6 (26-34) PG MCHC 34.5 (30-36) % RDW 14.6 (11.6-14.8) % Plt Count 365 (150-400) X10^3/uL Neut % (Auto) 82.3 H (50-75) % Lymph % (Auto) 11.0 L (25-40) % [place] % (Auto) 5.3 (3-14) % Eos % (Auto) 0.9 L (2-4) % Baso % (Auto) 0.5 (0-2) % Neut # (Auto) 8000 H (3587-1016) /uL Lymph # (Auto) 1100 (5315-7136) /uL [place] # (Auto) 500 (0-900) /uL Eos # (Auto) 100 (0-450) /uL Baso # (Auto) 0 (0-100) /uL PT 12.4 (10.1-12.7) SECONDS INR 1.1 (0.9-1.3) APTT 35 (26-36) SECONDS Sodium 135 L (137-145) mmol/L Potassium 3.1 L (3.4-5.1) mmol/L Chloride 91 L (98-107) mmol/L Carbon Dioxide 31 (22-32) mmol/L BUN 16 (7-17) mg/dL Creatinine 0.67 (0.52-1.04) mg/dL Estimated GFR > 60 (>60) mL/min BUN/Creatinine Ratio 23.9 H (6-22) Glucose 123 H (70-100) mg/dL Calcium 9.5 (8.4-10.2) mg/dL Magnesium 2.0 (1.6-2.3) mg/dL Total Bilirubin 0.6 (0.2-1.3) mg/dL AST 41 H (14-36) IU/L ALT 40 H (<35) IU/L Alkaline Phosphatase 100 (38-126) U/L Total Creatine Kinase 158 H (30-135) U/L CK-MB (CK-2) 2.32 (<2.37) ng/mL CK-MB (CK-2) Rel Index 1.5 (1.5-5.0) % Troponin I < 0.012 (0.01-0.034) ng/mL Total Protein 8.7 H (6.3-8.2) g/dL Albumin 4.6 (3.5-5.0) g/dL Globulin 4.1 (1.7-4.1) g/dL Albumin/Globulin Ratio 1.1 (1.0-2.8) Lipase 116 (23-300) U/L Imaging Data Chest x-ray: Radiologist's Impression: [address] [address] XRay Report Signed Patient: Daksha Verduzco MR#: [id number] : 1965 Acct:[id number] Age/Sex: 57 / F Date of Service: 08/03/22 Loc: ED Accession Number: [id number] ?? Procedure: XR chest 1V Ordering Provider: Lavelle Morocho D.O. PROCEDURE:? XR CHEST 1V ? INDICATIONS:? chest pain ? TECHNIQUE:? One view of the chest was acquired.? ? COMPARISON:? [facility], , XR CHEST 1V, 08/15/2021, 14:04. ? FINDINGS:? ? Surgical changes and devices:? None.? ? Lungs and pleura:? Lungs are clear.? No pleural effusions or pneumothorax.? ? Mediastinum:? Mediastinal contours appear normal.? Heart size is normal.? ? Bones and chest wall:? No suspicious bony lesions.? Overlying soft tissues appear unremarkable.? ? IMPRESSION:? ? 1.? No acute cardiopulmonary disease. ? ? ? Dictated by: Matty Parkinson M.D. on 08/03/2022 at 2:17 ? ? Approved by: Matty Parkinson M.D. on 08/03/2022 at 2:20?? ECG Data Attestation: I personally reviewed and interpreted this ECG as follows: Interpretation: Sinus bradycardia Ventricular rate of 55 Normal axis QRS 76 milliseconds Normal QTC No ST T wave changes MDM Narrative Medical decision making narrative: Patient has a low risk heart score. EKG is unremarkable. Chest x-ray is unremarkable. Troponins negative. She is positive for COVID. Is hypertensive but has a history of high blood pressure. She is on medications for this. She was wheezing upon arrival. She was given a albuterol MDI this did improve her symptoms somewhat. She was clear afterwards. No indication for antibiotics. Will have her contact her primary doctor to discuss follow-up and further risk stratification testing to include a stress test. She was given return precautions. She expressed understanding and agreement. Discharge Plan Departure Patient Disposition: Home Clinical Impression: HTN (hypertension), Atypical chest pain, COVID-19 Instructions: DI for Atypical Chest Pain Activity Restrictions/Additional Instructions: I recommend that you continue to take all of your medications as directed contact your primary doctor to discuss the indications for further testing to include potentially pulmonary function tests or a stress test. Return to the emergency department for any new or worsening symptoms. Prescriptions: No Action ferrous gluconate 324 mg (37.5 mg iron) tablet 324 mg PO DAILY Qty: 90 1RF chlorthalidone 25 mg tablet 25 mg PO DAILY Qty: 90 2RF amlodipine 5 mg tablet 5 mg PO DAILY Qty: 90 2RF Referrals: Oracio Mullins MD [Primary Care Provider] - Stand Alone Forms: Patient Portal/API
[2022-08-03] MEDS: ALBUTEROL HFA MDI 60 PUFF/8 GM INHALER INH (02:38)
[2022-08-03 03:39] VITALS: BP 167/73; PULSE 56; RESP 20; O2SAT 99
== END 2022-08-03 03:41 | disposition home or self-care (01) ==
PROVIDERS: Emergency Provider Emergency Medicine; Family Provider Family Medicine; PCP Family Medicine
DX: U07.1 COVID-19 (principal); I10 Essential (primary) hypertension; R07.89 Other chest pain
CPT/HCPCS: 36415; 71045; 80053; 82550; 82553; 83690; 83735; 84484; 85025; 85610; 85730; 93005; 93010; 99283; 99284; A9270

== ENCOUNTER → 2022-09-12 13:25 | Outpatient (CLI) | payer OTHER, MEDICAID, SELFPAY ==
--- NOTE | 2022-09-12 13:26 | DI.RAD.S_ITS ---
PROCEDURE: XR THORACIC SPINE 3V INDICATIONS: upper/mid/lower back pain TECHNIQUE: 3 views of the thoracic spine were acquired. COMPARISON: None. FINDINGS: Bones: No fractures or dislocations. No suspicious bony lesions. 12 pairs of ribs are noted, and appear intact where visualized. Soft tissues: No paravertebral stripe thickening. IMPRESSION: No evidence acute bony abnormality of the thoracic spine Dictated by: Elder Kruger M.D. on 09/12/2022 at 16:48 Approved by: Elder Kruger M.D. on 09/12/2022 at 16:50
--- NOTE | 2022-09-12 13:26 | DI.RAD.S_ITS ---
PROCEDURE: XR LUMBAR SPINE 2-3V INDICATIONS: upper/mid/lower back pain TECHNIQUE: 3 views of the lumbar spine were acquired. COMPARISON: [facility], , -SPINE 2-3 VIEWS, 03/30/2015, 10:39. FINDINGS: Bones: 5 [id number] vertebrae are present. There is normal bony alignment. No vertebral body compression fractures. No suspicious bony lesions. Lower lumbar facet arthropathy. Suspect canal stenosis. Soft tissues: Overlying bowel gas pattern is normal. No suspicious soft tissue calcifications. IMPRESSION: Lower lumbar facet arthropathy. Suspect canal stenosis. Comment: Lumbar spine MRI may be helpful. Dictated by: Elder Kruger M.D. on 09/12/2022 at 16:51 Approved by: Elder Kruger M.D. on 09/12/2022 at 16:52
--- NOTE | 2022-09-12 13:26 | DI.RAD.S_ITS ---
PROCEDURE: XR CERVICAL SPINE 2V OR 3V INDICATIONS: upper/mid/lower back pain TECHNIQUE: 3 view(s) of the cervical spine were acquired. COMPARISON: None. FINDINGS: Bones: No fractures or dislocations to the T1 level. The lateral masses of C1 appear intact on the odontoid view. No suspicious bony lesions. Cervical spondylosis with multilevel facet arthropathy. Soft tissues: No prevertebral soft tissue swelling. IMPRESSION: Cervical spondylitic change. Dictated by: Elder Kruger M.D. on 09/12/2022 at 16:50 Approved by: Elder Kruger M.D. on 09/12/2022 at 16:50
== END ==
PROVIDERS: Family Provider Family Medicine; PCP Family Medicine; Referring Provider Family Medicine; Visit Provider Family Medicine
DX: M47.812 Spondylosis without myelopathy or radiculopathy, cervical region (principal); M47.816 Spondylosis without myelopathy or radiculopathy, lumbar region; M54.2 Cervicalgia; M54.6 Pain in thoracic spine; M54.50 Low back pain, unspecified
CPT/HCPCS: 72040; 72072; 72100

== ENCOUNTER → 2022-10-10 09:03 | Outpatient (CLI) | payer OTHER, MEDICAID, SELFPAY ==
[2022-10-10 10:27] LABS: Hemoglobin A1C% w Est Avg Glu 5.4 % (4.0-6.0)
[2022-10-10 10:36] LABS: BUN Creatinine Ratio 23.9 (6-22); Blood Urea Nitrogen 17 mg/dL (7-17); Calcium 9.5 mg/dL (8.4-10.2); Carbon Dioxide 33 mmol/L (22-32); Chloride 97 mmol/L (98-107); Estimated Glomerular Filt Rate > 60 mL/min (>60); Glucose 84 mg/dL (70-100); HEMOLYSIS < 15 (0-50); Potassium 4.1 mmol/L (3.4-5.1); Sodium 138 mmol/L (137-145)
== END ==
PROVIDERS: Family Provider Family Medicine; PCP Family Medicine; Referring Provider Family Medicine; Visit Provider Family Medicine
DX: E87.6 Hypokalemia (principal); I10 Essential (primary) hypertension
CPT/HCPCS: 36415; 80048; 83036

== ENCOUNTER → 2022-12-08 17:16 | Outpatient (CLI) | payer OTHER, MEDICAID, SELFPAY ==
[2022-12-08 18:58] LABS: Erythrocyte Sedimentation Rate 14 MM/HR (0-20)
[2022-12-08 19:30] LABS: C-Reactive Protein Quant 0.7 mg/dL (<1.0)
[2022-12-08 19:31] LABS: Rheumatoid Factor < 8.6 IU/mL (<12.0)
[2022-12-12 18:34] LABS: CCP Antibodies IgG/IgA 5 units (0-19)
== END ==
PROVIDERS: Family Provider Family Medicine; PCP Family Medicine; Referring Provider Physician Assistant; Visit Provider Physician Assistant
DX: M25.50 Pain in unspecified joint (principal); M54.50 Low back pain, unspecified
CPT/HCPCS: 36415; 85651; 86140; 86200; 86430

== ENCOUNTER 2023-07-06 15:39 | Emergency (ER) | payer OTHER, MEDICAID, SELFPAY ==
[2023-07-06] VITALS (9 sets, daily range): BP systolic 146–189; BP diastolic 78–85; PULSE 66–80; RESP 10–23; TEMP 37.1; O2SAT 96–98; BMI 33.5
--- NOTE | 2023-07-06 15:53 | DI.RAD.S_ITS ---
PROCEDURE: XR CHEST 1V INDICATIONS: chest pain TECHNIQUE: One view of the chest was acquired. COMPARISON: [facility], CR, XR CHEST 1V, 08/03/2022, 0:55. FINDINGS: Surgical changes and devices: None Lungs and pleura: Lungs are clear. No pleural effusions or pneumothorax. Mediastinum: Mediastinal contours appear normal. Heart size is normal. Bones and chest wall: No suspicious bony lesions. Overlying soft tissues appear unremarkable. IMPRESSION: No acute cardiopulmonary abnormality is seen. Dictated by: Elder Kruger M.D. on 07/06/2023 at 16:53 Approved by: Elder Kruger M.D. on 07/06/2023 at 17:07
[2023-07-06 16:22] LABS: INR 1.1 (0.9-1.3); Prothrombin Time 12.3 SECONDS (9.4-12.5)
[2023-07-06 16:25] LABS: PTT Partial Thromboplastin Tim 34 SECONDS (25.1-36.5)
[2023-07-06 16:27] LABS: Alanine Aminotransferase 32 IU/L (<35); Albumin 4.7 g/dL (3.5-5.0); Albumin Globulin Ratio 1.2 (1.0-2.8); Alkaline Phosphatase 68 U/L (38-126); Aspartate Aminotransferase 35 IU/L (14-36); Bilirubin Total 0.8 mg/dL (0.2-1.3); Blood Urea Nitrogen 14 mg/dL (7-17); Calcium 10.2 mg/dL (8.4-10.2); Carbon Dioxide 29 mmol/L (22-32); Chloride 99 mmol/L (98-107); Creatine Kinase 70 U/L (30-135); Estimated Glomerular Filt Rate > 60 mL/min (>60); Globulin 3.8 g/dL (1.7-4.1); Glucose 111 mg/dL (70-100); HEMOLYSIS < 15 (0-50); Lipase 120 U/L (23-300); Magnesium 1.9 mg/dL (1.6-2.3); Potassium 3.6 mmol/L (3.4-5.1); Sodium 137 mmol/L (137-145); Total Protein 8.5 g/dL (6.3-8.2)
[2023-07-06 16:36] LABS: Add Manual Diff / Slide Review NO; Basophils Absolute Auto 100 /uL (0-100); Eosinophils Absolute Auto 100 /uL (0-450); Eosinophils Percent Auto 1.6 % (2-4); Hematocrit 41.2 % (36-46); Hemoglobin 13.9 g/dL (12.0-16.0); Lymphocytes Absolute Auto 1600 /uL (1100-4500); Lymphocytes Percent Auto 22.7 % (25-40); Mean Corpuscular HGB Conc 33.8 % (30-36); Mean Corpuscular Hemoglobin 29.1 PG (26-34); Mean Corpuscular Volume 85.9 fL (80-100); Monocytes Absolute Auto 500 /uL (0-900); Monocytes Percent Auto 7.5 % (3-14); Neutrophils Absolute Auto 4800 /uL (1500-7000); Neutrophils Percent Auto 67.2 % (50-75); Platelet Count 458 X10^3/uL (150-400); Red Blood Cell Count 4.79 X10^6/uL (4.0-5.2); Red Cell Distribution Width 14.9 % (11.6-14.8); White Blood Cell Count 7.2 X10^3/uL (4.5-11.0)
[2023-07-06 16:38] LABS: Troponin I < 0.012 ng/mL (0.01-0.034)
[2023-07-06 16:39] LABS: NT-proBNP (BNP-Adult 18+) 66 pg/mL (<125)
--- NOTE | 2023-07-06 16:53 | PC.NURSE ---
Pt denies SI/HI. 7 years ago her love . Since then she has remained sad and is trying to focus on just keep going. She currently lives at home in her house and had to have her first move in with her to help pay the mortgage and he has also been lending her money to pay bills. She is not happy about having her 1st move in, however he is being helpful paying rent and lending her the money. She has 2x kids nearby, a daughter in [facility] and a son who is staying in [place] now. She states she has a history with depression medications and refuses to use them now. Pt endorses praying often. Pt states she doesnt have chest pain, but feels a heaviness and sadness. It is difficult for her to breathe when laying flat in bed which scares her. She also reports increased weakness and difficulty coping with her broken heart. She wants to start completely new life from here.
--- NOTE | 2023-07-06 17:21 | ED_ITS ---
HPI - Psych <Erik Mercer PA-C - Last Filed: 07/06/23 17:41> General Chief Complaint: Psychiatric Symptoms Stated Complaint: HEART ISSUES Time Seen by Provider: 07/06/23 17:16 Source: patient Mode of arrival: Ambulatory History of Present Illness HPI Narrative: This is a 58-year-old female presents emergency department due to a reported sensation of chest heaviness has been affecting her for the last couple of years. She states that she feels it especially at night and feels her heart ?pounding? when she lays down to go to sleep. She does report some lower extremity edema for the last couple of years as well as nausea for the last couple of years as well. This all began after hysterectomy 2 years ago. She denies any significant chest pressure currently or left arm pain or left jaw pain. No cardiac history. She states she was not spoken with the primary care provider about this. Related Data Previous Rx's Medication Instructions Recorded cyclobenzaprine 10 mg tablet 10 mg PO BEDTIME #30 tabs 02/08/12 ferrous gluconate 324 mg (37.5 mg 324 mg PO DAILY #90 tabs 12/02/21 iron) tablet estradiol 0.01% (0.1 mg/gram) 0.5 g vaginal 2XW #42.5 grams 11/07/22 vaginal cream (Estrace) amlodipine 5 mg tablet See Rx Instructions .Route 12/20/22 .COMPLEX #90 tabs chlorthalidone 25 mg tablet See Rx Instructions .Route 12/20/22 .COMPLEX #90 tabs Allergies Allergy/AdvReac Type Severity Reaction Status Date / Time latex [LATEX] Allergy Mild BREAKOUT.SKIN Verified 07/06/23 15:49 PEELING lisinopril Allergy Mild cough Verified 07/06/23 15:49 Penicillins [PENICILLINS] Allergy Mild RASH Verified 07/06/23 15:49 PAPER TAPE Allergy Unknown Uncoded 05/09/23 13:52 SILK TAPE Allergy Unknown Uncoded 05/09/23 13:52 night shade vegitables Allergy get sick Uncoded 05/09/23 13:52 Review of Systems <Erik Mercer PA-C - Last Filed: 07/06/23 17:41> Review of Systems Narrative: GENERAL: Denies chills, fatigue, malaise, fever, sweats. HEENT: Denies sinus pain, ear pain, sore throat, difficulty swallowing, dizziness. RESPIRATORY: Denies dyspnea, cough, wheezing, hemoptysis, sputum. CARDIOVASCULAR: Reports chest pressure at night, denies palpitations, orthopnea, edema, GASTROINTESTINAL: Denies nausea, vomiting, abdominal pain, diarrhea, constipation, melena. : Denies dysuria, frequency, incontinence, hematuria, urinary retention. MUSCULOSKELETAL: denies weakness, joint pain, or bony pain SKIN: Denies rash, skin lesions, or other NEUROLOGIC: Denies weakness, headache, numbness, change in speech, confusion, seizures, incoordination. PSYCHIATRIC: No concerning psychosocial issues. 12 point review of systems is negative except for those stated above Patient History <Erik Mercer PA-C - Last Filed: 07/06/23 17:41> Medical History (Updated 07/06/23 @ 17:40 by Erik Mercer PA-C) COVID-19 Seizure Menopausal symptoms Abscess Anxiety Abscess Pain in metatarsus of right foot Leg cramps Cutaneous abscess of buttock HTN (hypertension) Neck pain (03/30/15) Otalgia of right ear Acute sinusitis Mental health problem Hematuria Abdominal pain Surgical History History of bilateral salpingectomy History of partial hysterectomy Status post loop electrosurgical excision procedure (LEEP) of cervix Status post dilation and curettage History of nephrectomy Family History Father No problems noted. Mother No problems noted. Social History marital status: household members: children Smoking Status: Former smoker alcohol intake: current substance use type: does not use Smoking Status: Former smoker tobacco type: cigarettes alcohol intake frequency: holidays/special occasions only Substance Use Type: does not use Exam <Erik Mercer PA-C - Last Filed: 07/06/23 17:41> Narrative Exam Narrative: GENERAL: Well-developed patient, in mild distress. HEAD: Atraumatic. Normocephalic. EYES: Pupils equal round and reactive. Extraocular motions intact. No scleral icterus. No injection or drainage. ENT: Nose without bleeding, purulent drainage. Throat without erythema, tonsillar hypertrophy or exudate. Airway patent. NECK: Trachea midline. Non tender CARDIOVASCULAR: Regular rate and rhythm without murmurs, gallops, or rubs. RESPIRATORY: Clear to auscultation. Breath sounds equal bilaterally. No wheezes, rales, or rhonchi. GASTROINTESTINAL: Abdomen soft, non-tender, nondistended. EXTREMITIES: No edema or joint tenderness. BACK: Nontender without deformity or crepitance. No flank tenderness. NEURO: AOx3. SKIN: No rash or erythema of visible areas Initial Vital Signs Initial Vital Signs: Vital Signs Temperature 98.7 F 07/06/23 15:42 Pulse Rate 80 07/06/23 15:42 Respiratory Rate 14 07/06/23 15:42 Blood Pressure 150/85 H 07/06/23 15:42 Pulse Oximetry 97 07/06/23 15:42 Oxygen Delivery Method Room Air 07/06/23 15:42 <Dalring Bustamante DO - Last Filed: 07/09/23 07:39> Initial Vital Signs Initial Vital Signs: Vital Signs Temperature 98.7 F 07/06/23 15:42 Pulse Rate 80 07/06/23 15:42 Respiratory Rate 14 07/06/23 15:42 Blood Pressure 150/85 H 07/06/23 15:42 Pulse Oximetry 97 07/06/23 15:42 Oxygen Delivery Method Room Air 07/06/23 15:42 Course <Erik Mercer PA-C - Last Filed: 07/06/23 17:41> Orders Ordered: Discontinued Medications Aspirin (Aspirin 81 Mg Chew Tab) 324 mg PO NOW ONE Stop: 07/06/23 15:53 Last Admin: 07/06/23 15:59 Dose: Not Given Documented By: SHAHAB Ondansetron HCl (Ondansetron 4 Mg/2 Ml Inj) 4 mg IV NOW ONE Stop: 07/06/23 17:36 Last Admin: 07/06/23 17:40 Dose: 4 mg Documented By: SPF Vital Signs Vital signs: Vital Signs - 8 hr 07/06/23 15:42 Temperature 98.7 F Pulse Rate 80 Respiratory Rate 14 Blood Pressure 150/85 H Pulse Oximetry 97 Oxygen Delivery Method Room Air <Darling Bustamante DO - Last Filed: 07/09/23 07:39> Orders Ordered: Discontinued Medications Aspirin (Aspirin 81 Mg Chew Tab) 324 mg PO NOW ONE Stop: 07/06/23 15:53 Last Admin: 07/06/23 15:59 Dose: Not Given Documented By: SHAHAB Ondansetron HCl (Ondansetron 4 Mg/2 Ml Inj) 4 mg IV NOW ONE Stop: 07/06/23 17:36 Last Admin: 07/06/23 17:40 Dose: 4 mg Documented By: DARIUSZ Vital Signs Vital signs: Vital Signs - 8 hr 07/06/23 15:42 Temperature 98.7 F Pulse Rate 80 Respiratory Rate 14 Blood Pressure 150/85 H Pulse Oximetry 97 Oxygen Delivery Method Room Air MDM - Psych <Erik Mercer PA-C - Last Filed: 07/06/23 17:41> Lab Data 07/06/23 15:51 07/06/23 15:51 Labs: Lab Results 07/06/23 Range/Units 15:51 WBC 7.2 (4.5-11.0) X10^3/uL RBC 4.79 (4.0-5.2) X10^6/uL Hgb 13.9 (12.0-16.0) g/dL Hct 41.2 (36-46) % MCV 85.9 (80-100) fL MCH 29.1 (26-34) PG MCHC 33.8 (30-36) % RDW 14.9 H (11.6-14.8) % Plt Count 458 H (150-400) X10^3/uL Neut % (Auto) 67.2 (50-75) % Lymph % (Auto) 22.7 L (25-40) % [place] % (Auto) 7.5 (3-14) % Eos % (Auto) 1.6 L (2-4) % Baso % (Auto) 1.0 (0-2) % Neut # (Auto) 4800 (6983-2550) /uL Lymph # (Auto) 1600 (0090-8174) /uL [place] # (Auto) 500 (0-900) /uL Eos # (Auto) 100 (0-450) /uL Baso # (Auto) 100 (0-100) /uL PT 12.3 (9.4-12.5) SECONDS INR 1.1 (0.9-1.3) APTT 34 (25.1-36.5) SECONDS Sodium 137 (137-145) mmol/L Potassium 3.6 (3.4-5.1) mmol/L Chloride 99 (98-107) mmol/L Carbon Dioxide 29 (22-32) mmol/L BUN 14 (7-17) mg/dL Creatinine 0.70 (0.52-1.04) mg/dL Estimated GFR > 60 (>60) mL/min BUN/Creatinine Ratio 20.0 (6-22) Glucose 111 H (70-100) mg/dL Calcium 10.2 (8.4-10.2) mg/dL Magnesium 1.9 (1.6-2.3) mg/dL Total Bilirubin 0.8 (0.2-1.3) mg/dL AST 35 (14-36) IU/L ALT 32 (<35) IU/L Alkaline Phosphatase 68 (38-126) U/L Total Creatine Kinase 70 (30-135) U/L Troponin I < 0.012 (0.01-0.034) ng/mL NT-Pro-B Natriuret Pep 66 (<125) pg/mL Total Protein 8.5 H (6.3-8.2) g/dL Albumin 4.7 (3.5-5.0) g/dL Globulin 3.8 (1.7-4.1) g/dL Albumin/Globulin Ratio 1.2 (1.0-2.8) Lipase 120 (23-300) U/L Imaging Data Chest x-ray: Radiologist's Impression: Close Chest X-Ray (Signed) Elder Kruger - 07/06/23 Launch?Image [address] [address] XRay Report Signed Patient: Daksha Verduzco MR#: [id number] : 1965 Acct:[id number] Age/Sex: 58 / F Date of Service: 07/06/23 Loc: ED Accession Number: [id number] Procedure: XR chest 1V Ordering Provider: Darling Bustamante D.O. PROCEDURE: XR CHEST 1V INDICATIONS: chest pain TECHNIQUE: One view of the chest was acquired. COMPARISON: [facility], , XR CHEST 1V, 08/03/2022, 0:55. FINDINGS: Surgical changes and devices: None Lungs and pleura: Lungs are clear. No pleural effusions or pneumothorax. Mediastinum: Mediastinal contours appear normal. Heart size is normal. Bones and chest wall: No suspicious bony lesions. Overlying soft tissues appear unremarkable. IMPRESSION: No acute cardiopulmonary abnormality is seen. Dictated by: Elder Kruger M.D. on 07/06/2023 at 16:53 Approved by: Elder Kruger M.D. on 07/06/2023 at 17:07 ECG Data Interpretation: 1600: EKG is normal sinus rhythm rate 64 and free of any signs of ischemia or ectopy. No ST segmental elevation or depression. No T wave inversions MDM Narrative Medical decision making narrative: MDM * differential diagnosis includes but not limited to STEMI, NSTEMI, CHF, pneumonia * Prior records reviewed: Patient was seen here 11 months ago due to atypical chest pain. Was COVID positive at that time. Was having chest pains well as back pain. Has a history of high blood pressure. Chest x-ray and cardiac workup negative. * My lab interpretation: CBC, CMP, troponin, BNP, magnesium within normal limits. * My imgaing interpretation: Chest x-ray unremarkable * Clinical Decision Rules/Scores evaluated: Heart score of 2 * Independent discussions with: None ED Course: This is a 58-year-old female presents to emergency department complaining of vague chest pressure symptoms for the last couple of years. Her cardiac workup today was completely unremarkable. Recommended she speak with the primary care provider for further evaluation and testing if symptoms continue. Patient did say she was suffering from a ?broken heart? as she was in love with somebody who 7 years ago. Medical social work spoke with the patient and provide resources. No SI. Shared Decision Making: Discussed plan with the patient who is comfortable with the plan. Social Considerations: None Disposition: Discharged to home <Darling Bustamante, - Last Filed: 07/09/23 07:39> Lab Data Labs: Lab Results 07/06/23 Range/Units 15:51 WBC 7.2 (4.5-11.0) X10^3/uL RBC 4.79 (4.0-5.2) X10^6/uL Hgb 13.9 (12.0-16.0) g/dL Hct 41.2 (36-46) % MCV 85.9 (80-100) fL MCH 29.1 (26-34) PG MCHC 33.8 (30-36) % RDW 14.9 H (11.6-14.8) % Plt Count 458 H (150-400) X10^3/uL Neut % (Auto) 67.2 (50-75) % Lymph % (Auto) 22.7 L (25-40) % [place] % (Auto) 7.5 (3-14) % Eos % (Auto) 1.6 L (2-4) % Baso % (Auto) 1.0 (0-2) % Neut # (Auto) 4800 (7386-9896) /uL Lymph # (Auto) 1600 (4945-8094) /uL [place] # (Auto) 500 (0-900) /uL Eos # (Auto) 100 (0-450) /uL Baso # (Auto) 100 (0-100) /uL PT 12.3 (9.4-12.5) SECONDS INR 1.1 (0.9-1.3) APTT 34 (25.1-36.5) SECONDS Sodium 137 (137-145) mmol/L Potassium 3.6 (3.4-5.1) mmol/L Chloride 99 (98-107) mmol/L Carbon Dioxide 29 (22-32) mmol/L BUN 14 (7-17) mg/dL Creatinine 0.70 (0.52-1.04) mg/dL Estimated GFR > 60 (>60) mL/min BUN/Creatinine Ratio 20.0 (6-22) Glucose 111 H (70-100) mg/dL Calcium 10.2 (8.4-10.2) mg/dL Magnesium 1.9 (1.6-2.3) mg/dL Total Bilirubin 0.8 (0.2-1.3) mg/dL AST 35 (14-36) IU/L ALT 32 (<35) IU/L Alkaline Phosphatase 68 (38-126) U/L Total Creatine Kinase 70 (30-135) U/L Troponin I < 0.012 (0.01-0.034) ng/mL NT-Pro-B Natriuret Pep 66 (<125) pg/mL Total Protein 8.5 H (6.3-8.2) g/dL Albumin 4.7 (3.5-5.0) g/dL Globulin 3.8 (1.7-4.1) g/dL Albumin/Globulin Ratio 1.2 (1.0-2.8) Lipase 120 (23-300) U/L ECG Data Interpretation: 1600: EKG is normal sinus rhythm rate 64 and free of any signs of ischemia or ectopy. No ST segmental elevation or depression. No T wave inversions Mank: Sinus rhythm rate of 64 MA 164 QRS 86 QTC 422. No acute ST change your depression appreciated. Discharge Plan Departure Patient Disposition: Home Clinical Impression: Atypical chest pain Activity Restrictions/Additional Instructions: Thank you for coming to the [facility] Emergency Department today. Your cardiac workup today was completely unremarkable. There was no evidence of ?heart attack?. There was no evidence of any infection or lung abnormalities. There was no evidence of any heart failure on your lab work. I hope the talk with the social work was beneficial for you. Please follow up with the primary care provider for further testing if your symptoms continue. I hope you feel better soon. Please follow up with your primary care provider within a week if your symptoms continue. If you do not have a primary care provider please contact the [facility] Resource line at [phone]. They will ask some questions about your medical history and help you get set up with a provider in the community. Prescriptions: No Action ferrous gluconate 324 mg (37.5 mg iron) tablet 324 mg PO DAILY Qty: 90 1RF cyclobenzaprine 10 mg tablet 10 mg PO BEDTIME Qty: 30 1RF estradiol [Estrace] 0.01 % (0.1 mg/gram) cream 0.5 g vaginal 2XW Qty: 42.5 3RF amlodipine 5 mg tablet See Rx Instructions .ROUTE .COMPLEX Qty: 90 3RF Dose Instruction: TAKE 1 TABLET BY MOUTH EVERY DAY Rx Instructions: TAKE 1 TABLET BY MOUTH EVERY DAY chlorthalidone 25 mg tablet See Rx Instructions .ROUTE .COMPLEX Qty: 90 3RF Dose Instruction: TAKE 1 TABLET BY MOUTH EVERY DAY Rx Instructions: TAKE 1 TABLET BY MOUTH EVERY DAY Referrals: Oracio Mullins MD [Primary Care Provider] - Stand Alone Forms: Patient Portal/API ED Sign-out <Darling Bustamante DO - Last Filed: 07/09/23 07:39> Cosign ED Attending Cossabinaature Attestation: I was immediately available in the department for consultation.
[2023-07-06] MEDS: ONDANSETRON 4 MG/2 ML INJ IV (17:40)
--- NOTE | 2023-07-06 17:45 | CM.SWNOTE ---
ED NEURO OPHTHALMOLOGIST Note Patient is 58 y/o female who presents to ED due to concerns for heart issues and concerns for grief. Patient endorses to RN that she lost her love 7 years ago, is currently in debt going to school and not working, having difficulty paying bills. NEURO OPHTHALMOLOGIST meets with patient briefly, patient endorses interest in seeing a counselor. Patient denies anything further from NEURO OPHTHALMOLOGIST. NEURO OPHTHALMOLOGIST provides patient with list of counselors that accept her insurance, basic need resources and grief counseling resources. Patient endorses plan to f/u with PCP. Plan: patient to d/c to home upon medical clearance, patient to f/u with PCP, seek counselor and f/u with resources provided. TERRIE AndersSW
== END 2023-07-06 18:15 | disposition home or self-care (01) ==
PROVIDERS: Emergency Medicine; Emergency Provider Physician Assistant Medical; Family Provider Family Medicine; PCP Family Medicine
DX: R07.89 Other chest pain (principal)
CPT/HCPCS: 36415; 71045; 80053; 82550; 83690; 83735; 83880; 84484; 85025; 85610; 85730; 93005; 96374; 99284; J2405

== ENCOUNTER → 2023-07-19 15:07 | Outpatient (CLI) | payer OTHER, MEDICAID, SELFPAY | PROVIDERS: Family Provider Family Medicine; PCP Family Medicine; Referring Provider Family Medicine; Visit Provider Family Medicine | DX: R00.2 Palpitations (principal); R07.9 Chest pain, unspecified | CPT/HCPCS: 93246 ==

== ENCOUNTER → 2023-08-07 13:37 | Outpatient (CLI) | payer OTHER, MEDICAID, SELFPAY ==
--- NOTE | 2023-08-07 13:38 | DI.NM.S_ITS ---
PROCEDURE: NM REAL PERF SPECT REST & STR Rest and exercise myocardial perfusion SPECT with gated imaging and ejection fraction RADIOPHARMACEUTICAL: 26.7 mCi Tc-99m sestamibi IV at rest and 26.4 mCi Tc-99m sestamibi IV at peak exercise. A two day-protocol was performed. INDICATIONS: chest pain and pressure TECHNIQUE: Radiopharmaceutical was injected at peak stress test, and also at rest. SPECT images were obtained. SPECT myocardial perfusion images were displayed in short axis, horizontal long axis, and vertical long axis views. Gated images were reviewed using ByteLight software. COMPARISON: None. CARDIAC STRESS: A standard Reece treadmill exercise tolerance test was performed by the patient under the supervision of an attending staff. The patient exercised for 3 minutes and 51 seconds; functional aerobic impairment (JOSIE) is +44%. Hemodynamic data: There is normal blood pressure and heart rate response to exercise stress. Patient achieved 95% of maximum predicted heart rate at peak exercise. Symptoms: Patient had 3/10 chest pain during second stage of exercise that didn't worsen with continued exercise and resolved within 2 minutes into recovery. EKG: No diagnostic EKG changes of ischemia; no ectopy. FINDINGS: Raw data: There is good myocardial labeling by radiotracer. No significant motion artifacts. Left ventricle function: Gated images demonstrate normal left ventricle wall thickening. No segmental wall motion abnormality. No transient ischemic dilation; TID is 0.91 (normal less than 1.3). The left ventricle resting end-diastolic volume is 83 mL. Left ventricle stress ejection fraction is 86%; normal values are above 45%. Myocardial perfusion: There is a mildly intense mostly fixed apical defect that persists during prone imaging, suggesting old small myocardial infarction but artifact can't be definitively excluded. No significant ischemia. SSS 2. IMPRESSION: Equivocal nuclear stress test. 1) There is a mildly intense mostly fixed apical defect that persists during prone imaging, suggesting old small myocardial infarction but artifact can't be definitively excluded. No significant ischemia. SSS 2. 2) Normal left ventricular size, wall motion, and systolic function (EF 86% post stress). 3) No diagnostic ST changes during exercise or recovery. 4) 3/10 chest pain during second stage of exercise that didn't worsen with continued exercise and resolved within 2 minutes into recovery. 5) Significantly reduced exercise capacity (7.0METs, JOSIE +44%). Target heart rate achieved. Appropriate BP response to exercise. 6) No prior nuclear stress test available for comparison. Consider cardiology consultation for clinical correlation or further questions. Dictated by: Sylvia Marquis MD on 08/08/2023 at 16:51 Approved by: Sylvia Marquis MD on 08/08/2023 at 16:59
== END ==
PROVIDERS: Family Provider Family Medicine; PCP Family Medicine; Referring Provider Family Medicine; Visit Provider Family Medicine
DX: R07.89 Other chest pain (principal); I10 Essential (primary) hypertension
CPT/HCPCS: 78452; 93017; A9502

== ENCOUNTER → 2023-10-04 11:42 | Outpatient (CLI) | payer OTHER, MEDICAID, SELFPAY ==
[2023-10-04 12:43] LABS: BUN Creatinine Ratio 22.5 (6-22); Blood Urea Nitrogen 16 mg/dL (7-17); Calcium 9.9 mg/dL (8.4-10.2); Carbon Dioxide 32 mmol/L (22-32); Chloride 100 mmol/L (98-107); Estimated Glomerular Filt Rate > 60 mL/min (>60); Glucose 75 mg/dL (70-100); HEMOLYSIS < 15 (0-50); Potassium 4.5 mmol/L (3.4-5.1); Sodium 139 mmol/L (137-145)
== END ==
LOC: LAB 11:44
PROVIDERS: Family Provider Family Medicine; PCP Family Medicine; Referring Provider Internal Medicine Cardiovascular Disease; Visit Provider Internal Medicine Cardiovascular Disease
DX: R07.89 Other chest pain (principal); R94.39 Abnormal result of other cardiovascular function study
CPT/HCPCS: 36415; 80048

== ENCOUNTER → 2023-10-05 12:13 | Outpatient (CLI) | payer OTHER, MEDICAID, SELFPAY ==
--- NOTE | 2023-10-05 12:17 | DI.RAD.S_ITS ---
PROCEDURE: XR ELBOW RT MIN 3V INDICATIONS: Right elbow pain - lateral epicondyle TECHNIQUE: 3 views of the elbow were acquired. COMPARISON: None. FINDINGS: Bones: No fractures or dislocations. Normal alignment. Tiny osteophyte arising from the lateral epicondyle. No suspicious bony lesions. Soft tissues: No elbow joint effusion. No suspicious soft tissue calcifications. IMPRESSION: 1. No acute bony abnormality or significant joint effusion. 2. Tiny osteophyte arising from the lateral epicondyle. Dictated by: Shanique Norris M.D. on 10/05/2023 at 17:22 Approved by: Shanique Norris M.D. on 10/05/2023 at 17:22
--- NOTE | 2023-10-05 12:17 | DI.RAD.S_ITS ---
PROCEDURE: XR SHOULDER RT MIN 2V INDICATIONS: Right shoulder pain TECHNIQUE: 3 views of the shoulder were acquired. COMPARISON: None. FINDINGS: Bones: No fractures or dislocations. Mild glenohumeral joint space narrowing. No suspicious bony lesions. Visualized ribs appear intact. Soft tissues: No suspicious soft tissue calcifications. IMPRESSION: 1. No acute bony abnormality. 2. Mild glenohumeral joint space narrowing. Dictated by: Shanique Norris M.D. on 10/05/2023 at 17:21 Approved by: Shanique Norris M.D. on 10/05/2023 at 17:22
== END ==
PROVIDERS: Family Provider Family Medicine; PCP Family Medicine; Referring Provider Physician Assistant; Visit Provider Physician Assistant
DX: M25.511 Pain in right shoulder (principal); M25.521 Pain in right elbow
CPT/HCPCS: 73030; 73070

== ENCOUNTER → 2024-01-11 15:48 | Outpatient (CLI) | payer OTHER, MEDICAID, SELFPAY | PROVIDERS: Family Provider Family Medicine; PCP Family Medicine; Visit Provider Nurse Practitioner Family | DX: N76.4 Abscess of vulva (principal) | CPT/HCPCS: 87070; 87075; 87147; 87205 ==